=== PATIENT | female | born 1935 | race Caucasian/White ===

== ENCOUNTER 2016-12-11 19:37 | Inpatient (IN) | payer MEDICARE, BC ==
[~2016-12-11] VITALS: Ht 172.7 cm; Wt 90.5 kg
[~2016-12-11 19:37] MED LIST: ASPI81TA2 PO; ATOR20TA58 PO; BUPR100T6 PO; CHOL10007 PO; CLOP75TA27 PO; IBUP200C; INSU100C SQ; INSU100V8 SQ; LISI-334 PO; LISI40TA PO; METO-313 PO; METO25TA4 PO; NITR0.3T SL; PHEN50TA3 PO; RANO500T2 PO; VITA1TAB19 PO
--- NOTE | 2016-12-11 20:02 | ED.ADGEN ---
Past History Past Medical History: CAD, Diabetes, High Cholesterol, Hypertension, Seizure, Other Past Surgical History: , Hysterectomy, Tonsillectomy, Other Smoking: Non-smoker Alcohol Use: None Drug Use: None Adult General Chief Complaint Chief Complaint ".. I ve been sick..." [facility] HPI Patient is a 81 year old female who presents with complaints of nausea and vomiting since 1430 today. Patient unable to keep any food or fluid down. Has had approximately 15-20 vomiting episodes since this afternoon. Patient did call [facility] and a prescription was called in for Zofran however the pharmacy is closed. Patient told to go the emergency primary for further evaluation. Patient denies any noncompliance with meds. She denies any intake of bad food. Patient denies any travel or specific ill contacts. Patient does have some significant medical history -diabetes, hypertension, coronary artery disease, seizure disorder and arthritis. Review of Systems Review of Systems Constitutional: Denies fever or chills [] Eyes: Denies change in visual acuity, redness, or eye pain [] HENT: Denies nasal congestion or sore throat [] Respiratory: Denies cough or shortness of breath [] Cardiovascular: No additional information not addressed in HPI [] GI: Complaints of generalized abdominal pain, nausea, vomiting, and diarrhea : Denies dysuria or hematuria [] Musculoskeletal: Denies back pain or joint pain [] Integument: Denies rash or skin lesions [] Neurologic: Denies headache, focal weakness or sensory changes [] Endocrine: Denies polyuria or polydipsia [] Family History Family History Noncontributory Current Medications Current Medications Current Medications Medications (Trade) Dose Ordered Sig/[place] Start Time Stop Time Status Last Admin Dose Admin Ondansetron HCl (Zofran) 8 mg 1X ONCE 12/11/16 20:15 12/11/16 20:16 DC 12/11/16 20:41 8 MG Allergies Allergies Allergies Coded Allergies Type Severity Reaction Last Updated Verified Sulfa (Sulfonamide Antibiotics) Allergy Severe Hives 12/29/13 Yes celecoxib Allergy Severe Hives 12/29/13 Yes codeine Allergy Severe Hives 12/29/13 Yes Physical Exam Physical Exam Constitutional: in acute distress, non-toxic appearance. [] HENT: Normocephalic, atraumatic, bilateral external ears normal, oropharynx moist, no oral exudates, nose normal. [] Eyes: PERRLA, EOMI, conjunctiva normal, no discharge. [] Neck: Normal range of motion, no tenderness, supple, no stridor. [] Cardiovascular. Tachycardia:Heart rate regular rhythm, no murmur, PMI to the left Lungs & Thorax: Bilateral breath sounds equal at apexes with a few scattered wheezes on Auscultation [] Abdomen: Bowel sounds are hyperactive, soft, generalized tenderness, no masses, no pulsatile masses. Old surgery scars. Obese. Declines rectal exam this time. Skin: Warm, dry, no erythema, no rash. Poor turgor Back: No tenderness, no CVA tenderness. [] Extremities: No tenderness, no cyanosis, no clubbing, ROM intact, no edema. Arthritic changes.] Neurologic: Alert and oriented X 3, no gross motor function deficits, decreased distal plantar sensory,, no focal deficits noted. [] Psychologic: Affect anxious, judgement normal, mood normal. [] Current Patient Data Vital Signs Vital Signs Date Time Temp Pulse Resp B/P Pulse Ox O2 Delivery O2 Flow Rate FiO2 12/11/16 21:36 88 16 132/79 95 12/11/16 20:00 98.0 Room Air Lab Results Laboratory Tests Test 12/11/16 21:20 12/11/16 22:20 White Blood Count 9.6x10^3/uL (4.0-11.0) Red Blood Count 4.41x10^6/uL (3.50-5.40) Hemoglobin 14.0g/dL (12.0-15.5) Hematocrit 41.4% (36.0-47.0) Mean Corpuscular Volume 94fL (79-100) Mean Corpuscular Hemoglobin 32pg (25-35) Mean Corpuscular Hemoglobin Concent 34g/dL (31-37) Red Cell Distribution Width 13.5% (11.5-14.5) Platelet Count 230x10^3/uL (140-400) Neutrophils (%) (Auto) 80% (31-73) H Lymphocytes (%) (Auto) 13% (24-48) L Monocytes (%) (Auto) 6% (0-9) Eosinophils (%) (Auto) 0% (0-3) Basophils (%) (Auto) 0% (0-3) Neutrophils # (Auto) 7.7x10^3uL (1.8-7.7) Lymphocytes # (Auto) 1.2x10^3/uL (1.0-4.8) Monocytes # (Auto) 0.6x10^3/uL (0.0-1.1) Eosinophils # (Auto) 0.0x10^3/uL (0.0-0.7) Basophils # (Auto) 0.0x10^3/uL (0.0-0.2) Prothrombin Time 11.5SEC (9.4-11.4) H Prothrombin Time INR 1.1 (0.9-1.1) PTT 25SEC (23-33) Sodium Level 139mmol/L (136-145) Potassium Level 3.3mmol/L (3.5-5.1) L Chloride Level 104mmol/L (98-107) Carbon Dioxide Level 28mmol/L (21-32) Anion Gap 7 (6-14) Blood Urea Nitrogen 24mg/dL (7-20) H Creatinine 0.7mg/dL (0.6-1.0) Estimated GFR (Cockcroft-Gault) 80.1 Glucose Level 164mg/dL (70-99) H Calcium Level 8.3mg/dL (8.5-10.1) L Magnesium Level 1.7mg/dL (1.8-2.4) L Total Bilirubin 0.8mg/dL (0.2-1.0) Direct Bilirubin 0.4mg/dL (0.0-0.2) H Aspartate Amino Transferase (AST) 62U/L (15-37) H Alanine Aminotransferase (ALT) 122U/L (14-59) H Alkaline Phosphatase 104U/L (46-116) Creatine Kinase 41U/L (26-192) Creatine Kinase MB (Mass) 0.8ng/mL (0.0-3.6) Creatine Kinase MB Relative Index 2.0% (0-4) Troponin I Quantitative < 0.017ng/mL (0-0.055) II-Ppx-L-Type Natriuretic Peptide 361pg/mL (0-449) Total Protein 6.9g/dL (6.4-8.2) Albumin 3.2g/dL (3.4-5.0) L Lipase 135U/L (73-393) Urine Collection Type Unknown Urine Color Evelina Urine Clarity Clear Urine pH 6.5 Urine Specific [place] 1.020 Urine Protein 100 mg/dl (NEG-TRACE) Urine Glucose (UA) Negmg/dL (NEG) Urine Ketones (Stick) 80mg/dL (NEG) Urine Blood Neg (NEG) Urine Nitrite Neg (NEG) Urine Bilirubin Small (NEG) Urine Urobilinogen Dipstick 2mg/dL (0.2 mg/dL) Urine Leukocyte Esterase Neg (NEG) Urine RBC 3-5/HPF (0-2) Urine WBC 6-10/HPF (0-4) Urine Squamous Epithelial Cells Occ/LPF Urine Bacteria 0/HPF (0-FEW) Urine Mucus Slight/LPF Urine Opiates Screen Neg (NEG) Urine Methadone Screen Neg (NEG) Urine Barbiturates Neg (NEG) Urine Phencyclidine Screen Neg (NEG) Urine Amphetamine/Methamphetamine Neg (NEG) Urine Benzodiazepines Screen Neg (NEG) Urine Cocaine Screen Neg (NEG) Urine Cannabinoids Screen Neg (NEG) Urine Ethyl Alcohol Neg (NEG) EKG EKG My interpretation of EKG shows a sinus rhythm at 92 bpm. There is left axis. Some nonspecific ST and lateral findings. But no findings acute STEMI with contralateral changes. Some bundle-branch changes [] Radiology/Procedures Radiology/Procedures My interpretation of abdomen film shows nonspecific bowel gas pattern. No free air in the diaphragm. Old surgical clips. My interpretation of chest x-ray shows cardiomegaly. Degenerative joint changes of spine. Kyphosis and scoliosis Course & Med Decision Making Course & Med Decision Making Pertinent Labs and Imaging studies reviewed. (See chart for details). Does presentation, testing and treatment plan with . Will admit for further hydration and evaluation and treatment. [] Final Impression Final Impression 1. Nausea and Vomiting[] 2. Dehydration 3. Hypokalemia 4. Hypomagnesium 5. Elevated AST and ALT 6. Malnutrition - Alb. 3.2 Problems: Dragon Disclaimer Dragon Disclaimer This electronic medical record was generated, in whole or in part, using a voice recognition dictation system. TRISTON FALCON MD Dec 11, 2016 20:02
[2016-12-11] MEDS ORDERED: ONDANSETRON PF 4 MG/2 ML VIAL. IV ONE (20:15)
--- NOTE | 2016-12-11 20:53 | EKG ---
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
[2016-12-11 21:48] LABS: BASO % 0 % (0-3); EOS % 0 % (0-3); HEMATOCRIT 41.4 % (36.0-47.0); LYMPH # 1.2 x10^3/uL (1.0-4.8); LYMPH % 13 % (24-48); MEAN CORPUSCULAR HEMOGLOBIN 32 pg (25-35); MEAN CORPUSCULAR HGB CONC 34 g/dL (31-37); MEAN CORPUSCULAR VOLUME 94 fL (79-100); MONO # 0.6 x10^3/uL (0.0-1.1); MONO % 6 % (0-9); NEUT # 7.7 x10^3uL (1.8-7.7); NEUT % 80 % (31-73); PLATELET COUNT 230 x10^3/uL (140-400); RED BLOOD COUNT 4.41 x10^6/uL (3.50-5.40); RED CELL DISTRIBUTION WIDTH 13.5 % (11.5-14.5); WHITE BLOOD COUNT 9.6 x10^3/uL (4.0-11.0)
[2016-12-11 22:19] LABS: ALBUMIN 3.2 g/dL (3.4-5.0); CALCIUM 8.3 mg/dL (8.5-10.1); CREATININE 0.7 mg/dL (0.6-1.0); DIRECT BILIRUBIN 0.4 mg/dL (0.0-0.2); GFR 80.1; MAGNESIUM 1.7 mg/dL (1.8-2.4); POTASSIUM 3.3 mmol/L (3.5-5.1); TOTAL BILIRUBIN 0.8 mg/dL (0.2-1.0); TOTAL PROTEIN 6.9 g/dL (6.4-8.2)
[2016-12-11 22:53] LABS: AMPHETAMINE/METHAMPHETAMINE NEG (NEG); BARBITURATES NEG (NEG); BENZODIAZEPINES NEG (NEG); CANNABINOIDS NEG (NEG); COCAINE NEG (NEG); METHADONE NEG (NEG); OPIATES NEG (NEG); PHENCYCLIDINE NEG (NEG)
[2016-12-11] MEDS ORDERED: POTASSIUM CHLORIDE 20 MEQ/15 ML ORAL LIQUID. PO ONE (23:00)
[2016-12-11 23:21] LABS: BILIRUBIN,URINE SMALL (NEG); CLARITY,URINE CLEAR; COLOR,URINE AMBER; GLUCOSE,URINE NEG (NEG)
[2016-12-11 23:22] LABS: UROBILINOGEN,URINE 2 mg/dL (0.2 mg/dL)
[2016-12-11 23:23] LABS: BACTERIA,URINE 0 /HPF (0-FEW); NITRITE,URINE NEG (NEG)
[2016-12-11 23:24] LABS: SQUAMOUS EPITHELIAL CELL,UR OCC /LPF
[2016-12-11] MEDS ORDERED: LORAZEPAM 2 MG/ML VIAL IV ONE (23:30)
[2016-12-11] MEDS ORDERED: MAGNESIUM SULFATE 2GM 50 ML IV ONE (23:30)
[2016-12-12] MEDS: ONDANSETRON PF 4 MG/2 ML VIAL. IV PRN ×2 (00:27→20:28)
[2016-12-12 01:40] VITALS: BP 145/62
[2016-12-12] MEDS: IV NORMAL SALINE 1,000ML 1,000 ML IV SCH ×3 (02:20→20:28)
[2016-12-12] MEDS ORDERED: IBUP800T PO (04:20)
[2016-12-12 04:47] LABS: BASO % 0 % (0-3); EOS % 0 % (0-3); HEMATOCRIT 40.3 % (36.0-47.0); HEMOGLOBIN 13.5 g/dL (12.0-15.5); LYMPH # 2.4 x10^3/uL (1.0-4.8); LYMPH % 24 % (24-48); MEAN CORPUSCULAR HEMOGLOBIN 32 pg (25-35); MEAN CORPUSCULAR HGB CONC 34 g/dL (31-37); MEAN CORPUSCULAR VOLUME 95 fL (79-100); MONO # 1.1 x10^3/uL (0.0-1.1); MONO % 11 % (0-9); NEUT # 6.3 x10^3uL (1.8-7.7); NEUT % 64 % (31-73); PLATELET COUNT 229 x10^3/uL (140-400); RED BLOOD COUNT 4.24 x10^6/uL (3.50-5.40); RED CELL DISTRIBUTION WIDTH 13.7 % (11.5-14.5); WHITE BLOOD COUNT 9.9 x10^3/uL (4.0-11.0)
[2016-12-12 05:26] LABS: PHENY 1.6 mcg/mL (10.0-20.0)
[2016-12-12] MEDS ORDERED: PHEN100C4 PO (05:56)
[2016-12-12] MEDS ORDERED: INSU100C SQ (05:58)
[2016-12-12] MEDS ORDERED: BUSP5TAB PO (06:00)
[2016-12-12] MEDS ORDERED: HYDR-2666 PO (06:02)
[2016-12-12] MEDS ORDERED: IBUPROFEN 800 MG TABLET. PO PRN (06:15)
[2016-12-12] MEDS ORDERED: NITROGLYCERIN 0.3 MG SL PRN (06:15)
[2016-12-12] MEDS ORDERED: HYDROCODONE/APAP 5/325MG TABLET. PO PRN (06:15)
[2016-12-12 06:16] VITALS: BP 133/51
[2016-12-12] MEDS ORDERED: DEXTROSE 50% 25 GM / 50ML DISP.SYRIN. IV PRN (06:30)
[2016-12-12 06:37] LABS: CALCIUM 8.2 mg/dL (8.5-10.1); CREATININE 0.7 mg/dL (0.6-1.0); GFR 80.1; POTASSIUM 4.2 mmol/L (3.5-5.1); TOTAL BILIRUBIN 0.5 mg/dL (0.2-1.0); TOTAL PROTEIN 6.1 g/dL (6.4-8.2)
[2016-12-12] MEDS: INSULIN ASPART 300 UNITS/3 ML INSULN.PEN SQ SCH ×3 (07:30→16:38)
[2016-12-12] MEDS: ASPIRIN 81 MG TAB.CHEW PO SCH (08:07)
[2016-12-12] MEDS: LISINOPRIL 20 MG TABLET PO SCH ×2 (08:07→20:29)
[2016-12-12] MEDS: CHOLECALCIFEROL (VITAMIN D3) 1,000 UNIT TABLET PO SCH (08:07)
[2016-12-12] MEDS: METOPROLOL TART IMMED RELEASE 25 MG TABLET PO SCH ×2 (08:07→20:30)
[2016-12-12] MEDS: RANOLAZINE 500 MG TAB.ER.12H PO SCH ×2 (08:07→20:29)
[2016-12-12] MEDS: VITAMIN B COMPLEX CAPSULE. PO SCH (08:07)
--- NOTE | 2016-12-12 08:43 | RAD ---
Indication: Abdominal pain with nausea. Technique: Upright and supine abdomen are submitted for review. No comparison is available. Findings: There is no free air. There are no dilated bowel loops. There are a few air-fluid levels noted on the right, appear to be mostly in colon. Impression: No evidence of small bowel obstruction. Air-fluid levels in the colon compatible with diarrhea.
--- NOTE | 2016-12-12 08:45 | RAD ---
Indication: Epigastric chest pain. Nausea. Technique: Two-view chest radiograph was obtained. Comparison is from December 02, 2014. Findings: The lungs are clear. The heart is upper limits of normal in size. There is no heart failure. There is atheromatous disease in the thoracic aorta. There is no pleural effusion. There are minimal degenerative changes in the spine. Impression: Borderline cardiomegaly.
--- NOTE | 2016-12-12 10:34 | ACF ---
Admission Criteria Forms VOMITING Clinical Indications for Admission to Inpatient Care ( Place 'X' for any and all applicable criteria): Admission is indicated for ANY ONE of the following(1)(2)(3): [X]I. Inpatient admission required rather than observation care because of ANY ONE of the following: [ ]i) Hemodynamic instability that is severe or persistent [ ]ii) Vomiting that is severe or persistent [ ]iii) Severe electrolyte abnormalities requiring inpatient care [ ]iv) Severe pain requiring acute inpatient management [ ]v) High fever or infection requiring inpatient admission as indicated by ANY ONE of the following(7)(8): [ ]1) Appropriate outpatient or observation care antimicrobial treatment unavailable, not effective, or not feasible [ ]2) Documented bacteremia [ ]3) Temp >104.9 degrees F (40.5 degrees C) (oral) [ ]4) Temp >103.1 degrees F (39.5 C) (oral) or <96.8 degrees F (36 C) (rectal) that does not respond to all emergency treatment measures [ ]vi) Acute renal failure [ ]vii) IV fluid to replace significant ongoing losses (greater than 3 L/m2 per day) [ ]viii) Parenteral nutrition regimen that must be implemented on inpatient basis [X]ix) Other condition, treatment or monitoring requiring inpatient admission [ ]II. Complete or partial gastrointestinal obstruction [ ]III. Other cause of vomiting requiring hospitalization (eg, poisoning, increased intracranial pressure) [ ]IV. Vomiting due to significant metabolic derangement (eg, severe hypercalcemia, diabetic ketoacidosis) Extended stay beyond goal length of stay may be needed for(1)(4): [ ]a) Severe vomiting [ ]b) Persistent vomiting, vital sign changes, severe electrolyte imbalance , or diagnosed cause of vomiting that requires continued hospitalization (eg, gastrointestinal obstruction , increased intracranial pressure) [ ]c) Surgery to treat identified causes of vomiting (eg, bowel obstruction , intracranial process) [ ]d) Comorbid illness that requires inpatient care (eg, acute heart failure , renal failure) [ ]e) Need for inpatient endoscopy The original [employer] [employer] content created by [employer] has been revised. The portions of the content which have been revised are identified through the use of italic text or in bold, and [facility] [employer] has neither reviewed nor approved the modified material. All other unmodified content is copyright [facility]. Please see references footnoted in the original [facility] edition 2016 Admission Criteria Met?: Yes GWYN FOWLER Dec 12, 2016 10:34
[2016-12-12 10:46] VITALS: BP 124/56
--- NOTE | 2016-12-12 14:23 | HP ---
ADMIT DATE: 12/12/2016 HISTORY OF PRESENT ILLNESS: This is an 81-year-old female patient who came to the Emergency Room yesterday with a complaint of recurrent bouts of nausea and vomiting. The patient was unable to keep any food or fluid down. She had approximately 15-20 vomiting episodes since yesterday afternoon. On further evaluation, the patient denied any noncompliance with medications. She denies any ill contacts or recent travel. None of her family has similar symptoms. She was evaluated in the Emergency Room, was found to be hypokalemic, dehydrated and was admitted for further evaluation and treatment. PAST MEDICAL HISTORY: Significant for coronary artery disease with stenting, hypertension, hyperlipidemia. 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 She is also known to have mitral regurgitation, depression and asthma. PAST SURGICAL HISTORY: Significant for cardiac catheterization and stenting, bilateral cataract extraction, , total abdominal hysterectomy and bilateral salpingo-oophorectomy, appendectomy and tonsillectomy. ALLERGIES: SHE IS ALLERGIC TO SULFA, CELEBREX AND CODEINE. MEDICATIONS: She is currently on the following medications: She is on aspirin 81 mg once a day, atorvastatin 40 mg at bedtime, buspirone 5 mg at bedtime, cholecalciferol for vitamin D3, 2000 international units once a day, hydrocodone/APAP 5/325 one tablet every 6 hours, ibuprofen 800 mg 3 times a day. She is on Lantus 40 units at bedtime, Humalog insulin 70 units before breakfast and lunch and Humalog 10 units before supper. She is on lisinopril 20 mg p.o. b.i.d., metoprolol tartrate 12.5 mg b.i.d., nitroglycerin 0.3 mg as needed sublingually every 5 minutes x 3. She is on phenytoin 100 mg p.o. daily at bedtime, Ranexa 500 mg p.o. b.i.d., and vitamin B complex 1 tablet once a day. FAMILY HISTORY: She has 4 brothers, 3 of them as babies. Her other brother in a work accident. She had 2 sisters, 1 of a stroke, 1 of COPD. Her father in his 70s because of CVA and mother is in her 80s because of CVA. SOCIAL HISTORY: She is , has 2 sons and 2 daughters. 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 REVIEW OF SYSTEMS: The patient denied any blurring of vision, she has had bilateral cataract extractions, but denied any glaucoma or macular degeneration. She denied any headache, tinnitus or sensorineural deafness. She denied any nosebleeds, stuffy nose or postnasal drip. She denied any sore throat, sore tongue, toothache, hoarseness of voice or difficulty swallowing. She did have recurrent bouts of nausea, vomiting, but no diarrhea. She denied any hematemesis, melena or hematochezia. She denied any dysuria, frequency or hematuria. She denied any chest pain, shortness of breath, orthopnea or paroxysmal nocturnal dyspnea. She denied any cough, phlegm or hemoptysis. She denied any chills, rigors or fever. PHYSICAL EXAMINATION: GENERAL: On examining her on arrival in the Emergency Room, she looked well, slightly pale; no jaundice, cyanosis or thyromegaly. No jugular venous distention. No limb edema. VITAL SIGNS: Her heart rate was 88, blood pressure 132/79, temperature was 98, respiratory rate was 16, and oxygen saturation was 96% on room air. HEENT: Showed normocephalic, atraumatic. NECK: Supple. HEART: Showed normal first and second heart sounds with no gallop, rub or murmur. CHEST: Clear to auscultation. No crepitation or rhonchi. ABDOMEN: Distended, soft, nontender. No guarding or rigidity. No organomegaly. ____ orifices intact. Bowel sounds normal. NEUROLOGIC: She was awake, alert, responding appropriately. Cranial nerves are intact. EXTREMITIES: She moves extremities without difficulty. She ambulates without assistance or assistive devices. LABORATORY DATA: On arrival to the Emergency Room showed a white cell count of 9600, hemoglobin 14, hematocrit 41, MCV 94 and platelet count 230,000 with a manual differential showing 80% polymorphs, 15% lymphocytes and 6% monocytes. Her chemistry showed that her serum sodium was 139, potassium 3.3, chloride 104, bicarbonate 28, anion gap of 7, BUN 24, creatinine 0.7. Estimated GFR was 80 mL per minute. Her glucose 164, calcium was 8.3, magnesium was 1.7. Total bilirubin is normal. AST, ALT elevated. Alkaline phosphatase is normal. Her first set of cardiac enzymes showed troponin to be less than 0.017. Beta natriuretic peptide was 361. Total protein was 6.9, albumin 3.2. Lipase was 135. Her prothrombin time was 11.5, INR 1.1, aPTT was 25. Urinalysis was essentially unremarkable. Urine toxic screen was also negative. Phenytoin level was very low at 1.6. ASSESSMENT AND PLAN: The patient was admitted, started on IV fluid and was continued on her medication. We will start with a clear liquid diet if tolerated and advance diet as tolerated. Her liver enzymes were normal in 2014 and given her recurrent bouts of nausea, vomiting and epigastric discomfort, I would probably arrange for her to have an abdominal ultrasound to rule out the possibility of acute cholecystitis. SWETHA NAGY MD DR: JAN/juliana JOB#: [id number] / [id number]
[2016-12-12 14:39] VITALS: BP 151/63
[2016-12-12 17:54] VITALS: BP 136/56
[2016-12-12] MEDS: PHENYTOIN SODIUM EXTENDED 100 MG CAPSULE PO SCH (20:29)
[2016-12-12] MEDS: ATORVASTATIN CALCIUM 20 MG TABLET PO SCH (20:29)
[2016-12-12] MEDS: busPIRone 5 MG TABLET. PO SCH (20:30)
[2016-12-12] MEDS: INSULIN DETEMIR 300 UNITS/3 ML INSULN.PEN. SQ SCH (20:31)
[2016-12-12 23:43] VITALS: BP 161/76
--- NOTE | 2016-12-12 23:47 | PN ---
DATE: 12/12/2016 SUBJECTIVE: The patient is sitting on the edge of the bed, drinking her liquid diet. She has had no further episodes of nausea, vomiting. She continued to have aches and pains, mostly epigastric in her joints and back. Her liver enzymes continued to be high, both of them were normal about 2 years ago. Her troponin was slightly also elevated. PHYSICAL EXAMINATION: GENERAL: When I examined her this afternoon, she looked well and was clearly in no apparent respiratory distress. No pallor, jaundice, cyanosis, or thyromegaly. No jugular venous distension. No limb edema. VITAL SIGNS: Her heart rate was 68, blood pressure was 124/56, temperature was 98.1, respiratory rate was 16, and oxygen saturation was 97% on room air. HEAD, EYES, EARS, NOSE AND THROAT: Showed normocephalic, atraumatic. NECK: Supple. HEART: Showed normal first and second heart sounds with no gallop, rub or murmur. CHEST: Clear to auscultation. No crepitation or rhonchi. ABDOMEN: Distended, soft, nontender. No guarding or rigidity. No organomegaly. Hernial orifices intact. Bowel sounds normal. NEUROLOGIC: She is awake, alert, responding appropriately. Cranial nerves intact. She moves extremities without difficulty. She ambulates without assistance or assistive devices. LABORATORY DATA: Her lab work this morning showed a white cell count 9900, hemoglobin 13.5, hematocrit 40, MCV 95 and platelet count 229,000. Her chemistry showed that her serum sodium was 139, potassium up to 4.2, chloride 105, bicarbonate 25, anion gap of 9, BUN 24, creatinine was 0.7, estimated GFR was 18 mL per minute. Her glucose was 154, calcium was 8.2. Total bilirubin normal; however, AST, ALT slightly elevated. Alkaline phosphatase was normal. Her total protein was 6.1, albumin 3. TSH was 0.756. Her second set of cardiac enzymes show troponin to be 0.027. ASSESSMENT: Recurrent bouts of nausea, vomiting, dehydration, hypokalemia, and hypomagnesemia. PLAN: Continue with IV fluid, continue with advance diet to full liquid diet. Given her symptoms and abnormal liver enzymes that were normal about 2 years ago, I will keep her n.p.o. from midnight. We will hold her insulin tonight arrange for her to have an abdominal ultrasound to make sure she does not have any acute cholecystitis. SWETHA NAGY MD DR: JAN/juliana JOB#: [id number] / [id number]
[2016-12-13 05:38] VITALS: BP 140/64
[2016-12-13 06:46] LABS: HEMATOCRIT 37.9 % (36.0-47.0); HEMOGLOBIN 12.7 g/dL (12.0-15.5); RED BLOOD COUNT 3.99 x10^6/uL (3.50-5.40); RED CELL DISTRIBUTION WIDTH 13.8 % (11.5-14.5); WHITE BLOOD COUNT 7.7 x10^3/uL (4.0-11.0)
[2016-12-13 07:02] LABS: ALBUMIN 2.7 g/dL (3.4-5.0); ALBUMIN/GLOBULIN RATIO 0.8 (1.0-1.7); CALCIUM 7.9 mg/dL (8.5-10.1); CREATININE 0.7 mg/dL (0.6-1.0); GFR 80.1; POTASSIUM 4.1 mmol/L (3.5-5.1); TOTAL BILIRUBIN 0.4 mg/dL (0.2-1.0); TOTAL PROTEIN 5.9 g/dL (6.4-8.2)
[2016-12-13] MEDS: INSULIN ASPART 300 UNITS/3 ML INSULN.PEN SQ SCH ×3 (07:30→16:55)
[2016-12-13] MEDS: IV NORMAL SALINE 1,000ML 1,000 ML IV SCH (08:00)
[2016-12-13] MEDS: METOPROLOL TART IMMED RELEASE 25 MG TABLET PO SCH ×2 (09:15→20:53)
[2016-12-13] MEDS: RANOLAZINE 500 MG TAB.ER.12H PO SCH ×2 (09:15→20:52)
[2016-12-13] MEDS: ASPIRIN 81 MG TAB.CHEW PO SCH (09:15)
[2016-12-13] MEDS: VITAMIN B COMPLEX CAPSULE. PO SCH (09:15)
[2016-12-13] MEDS: LISINOPRIL 20 MG TABLET PO SCH ×2 (09:16→20:53)
[2016-12-13] MEDS: CHOLECALCIFEROL (VITAMIN D3) 1,000 UNIT TABLET PO SCH (09:16)
--- NOTE | 2016-12-13 09:21 | RAD ---
Indication:Nausea and vomiting. Grayscale images of the abdomen were obtained. Comparison none Liver:A focal mass lesion is not seen and the visualized liver Gallbladder:Normal. The common bile duct diameter of approximately 5 mm is normal Spleen:Normal Pancreas:As visualized normal Kidneys:Normal Abdominal aorta and IVC:Largely obscured. That portion of the abdominal aorta which was seen appeared unremarkable Ancillary findings:None Impression:Midline structures partially obscured. No definite abnormality seen
[2016-12-13 11:24] VITALS: BP 168/68
[2016-12-13 15:29] VITALS: BP 179/73
[2016-12-13] MEDS: PANTOPRAZOLE 40 MG TABLET. PO SCH (16:30)
[2016-12-13] MEDS ORDERED: METO50TA2 PO (18:55)
[2016-12-13 19:00] VITALS: BP 167/53
[2016-12-13] MEDS: ATORVASTATIN CALCIUM 20 MG TABLET PO SCH (20:52)
[2016-12-13] MEDS: PHENYTOIN SODIUM EXTENDED 100 MG CAPSULE PO SCH (20:52)
[2016-12-13] MEDS: busPIRone 5 MG TABLET. PO SCH (20:53)
[2016-12-13] MEDS: INSULIN DETEMIR 300 UNITS/3 ML INSULN.PEN. SQ SCH (21:06)
--- NOTE | 2016-12-13 22:42 | PN ---
DATE: 12/13/2016 PROBLEMS: 1. Acute gastroenteritis with nausea and vomiting. 2. Mid-epigastric pain. 3. Elevated liver function tests. 4. Slightly elevated troponin. 5. Hypokalemia. 6. Hypomagnesemia. 7. Dehydration. 8. Weakness. 9. Moderate protein malnutrition. 10. Mild hyperglycemia. 11. Seizure disorder. This is an 81-year-old female who was admitted with the above problems. She had an ultrasound this morning, which was normal for any type of gallbladder disease. Her lipase was also normal. She is generally feeling better, but had some problems with PT and would benefit greatly from some post hospitalization rehab or swing bed status. OBJECTIVE: VITAL SIGNS: Blood pressure 168/68, earlier was 140/64, pulse 59, respirations 18, pulse ox is 97% on room air, temperature is 97.4, height 68 inches, weight is 198.13 pounds. Intake and output are good. GENERAL: Elderly female in no acute distress. Color is somewhat pale. HEENT: Her tongue was moist. NECK: Supple. LUNGS: Clear. CARDIOVASCULAR: Regular rhythm and rate. ABDOMEN: Soft. She does have tenderness in the mid-epigastrium. Bowel sounds are active. EXTREMITIES: With just a trace of edema. LABORATORY DATA: TSH is 0.756. Potassium is normal at 4.1. Fasting glucose 150. Albumin is 2.7, may be delusional, it was 3.2 on admission. PLAN: Continue to monitor her liver function tests. She is on a statin. This may be why it is very mildly elevated and we recommended her for swing bed status. Discontinue her IV fluids at this time. ANDREEA LEBLANC DO DR: BONILLA/juliana JOB#: [id number] / [id number]
[2016-12-14 05:12] VITALS: BP 166/58
[2016-12-14] MEDS ORDERED: METO25TA4 PO (07:18)
[2016-12-14 07:28] LABS: BASO % 0 % (0-3); EOS # 0.2 x10^3/uL (0.0-0.7); EOS % 2 % (0-3); HEMOGLOBIN 12.9 g/dL (12.0-15.5); LYMPH # 2.5 x10^3/uL (1.0-4.8); LYMPH % 28 % (24-48); MEAN CORPUSCULAR HEMOGLOBIN 32 pg (25-35); MEAN CORPUSCULAR HGB CONC 34 g/dL (31-37); MEAN CORPUSCULAR VOLUME 94 fL (79-100); MONO % 11 % (0-9); NEUT % 58 % (31-73); PLATELET COUNT 205 x10^3/uL (140-400); RED BLOOD COUNT 4.05 x10^6/uL (3.50-5.40); RED CELL DISTRIBUTION WIDTH 13.8 % (11.5-14.5); WHITE BLOOD COUNT 8.7 x10^3/uL (4.0-11.0)
[2016-12-14] MEDS: INSULIN ASPART 300 UNITS/3 ML INSULN.PEN SQ SCH (07:30)
[2016-12-14 07:48] LABS: ALBUMIN 2.7 g/dL (3.4-5.0); ALBUMIN/GLOBULIN RATIO 0.8 (1.0-1.7); CREATININE 0.7 mg/dL (0.6-1.0); GFR 80.1; MAGNESIUM 1.8 mg/dL (1.8-2.4); POTASSIUM 3.8 mmol/L (3.5-5.1); TOTAL BILIRUBIN 0.4 mg/dL (0.2-1.0)
[2016-12-14] MEDS: ASPIRIN 81 MG TAB.CHEW PO SCH (08:10)
[2016-12-14] MEDS: VITAMIN B COMPLEX CAPSULE. PO SCH (08:10)
[2016-12-14] MEDS: RANOLAZINE 500 MG TAB.ER.12H PO SCH (08:11)
[2016-12-14] MEDS: CHOLECALCIFEROL (VITAMIN D3) 1,000 UNIT TABLET PO SCH (08:11)
[2016-12-14 08:12] VITALS: BP 166/58
[2016-12-14] MEDS: LISINOPRIL 20 MG TABLET PO SCH (08:12)
[2016-12-14] MEDS: PANTOPRAZOLE 40 MG TABLET. PO SCH (08:12)
[2016-12-14] MEDS ORDERED: METOPROLOL TART IMMED RELEASE 25 MG TABLET PO SCH (09:00)
--- NOTE | 2016-12-14 17:29 | DS ---
DATE OF DISCHARGE: 12/14/2016 DISCHARGE DIAGNOSES: 1. Acute gastroenteritis with nausea and vomiting -- resolved. 2. Mid epigastric pain. 3. Elevated liver function tests with negative ultrasound, suspect from statin. 4. Slightly elevated troponin. 5. Hypokalemia, resolved. 6. Hypomagnesemia, resolved. 7. Dehydration, resolved. 8. Weakness, improved. 9. Moderate protein malnutrition. 10. Mild hyperglycemia. 11. Seizure disorder. HOSPITAL COURSE: This is an 81-year-old female who was admitted by Dr. Mantilla for severe nausea and vomiting, etiology is probably viral. She was treated with IV fluids, antiemetics and her electrolytes were corrected and she slowly got back down to her normal self. 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 PHYSICAL EXAMINATION: VITAL SIGNS: On day of discharge, blood pressure was 166/58, pulse 61, respirations 18, 96% on room air. DISPOSITION: To home. Medications have been reconciled. She will also have home health. ANDREEA LEBLANC DO DR: BONILLA/juliana JOB#: [id number] / [id number]
== END 2016-12-14 10:27 | disposition home health service (06) | DRG 392 ==
LOC: ER 19:37 → 1 SOUTH 22:59
PROVIDERS: ADMIT Internal Medicine; ATTEND Internal Medicine
DX: A08.4 Viral intestinal infection, unspecified (principal); E44.0 Moderate protein-calorie malnutrition; E86.0 Dehydration; E11.65 Type 2 diabetes mellitus with hyperglycemia; Z68.30 Body mass index [BMI] 30.0-30.9, adult; E78.00 Pure hypercholesterolemia, unspecified; E78.5 Hyperlipidemia, unspecified; E83.42 Hypomagnesemia; E87.6 Hypokalemia; G40.909 Epilepsy, unspecified, not intractable, without status epilepticus; I10 Essential (primary) hypertension; I25.10 Atherosclerotic heart disease of native coronary artery without angina pectoris; E66.9 Obesity, unspecified; J45.909 Unspecified asthma, uncomplicated; F32.9 Major depressive disorder, single episode, unspecified; M19.90 Unspecified osteoarthritis, unspecified site; Z82.3 Family history of stroke; Z82.5 Family history of asthma and other chronic lower respiratory diseases; Z87.442 Personal history of urinary calculi; Z87.891 Personal history of nicotine dependence; Z90.710 Acquired absence of both cervix and uterus; Z95.5 Presence of coronary angioplasty implant and graft; Z98.41 Cataract extraction status, right eye; Z98.42 Cataract extraction status, left eye; Z88.2 Allergy status to sulfonamides; Z88.5 Allergy status to narcotic agent
CPT/HCPCS: 36415; 71020; 74020; 76700; 80048; 80053; 80076; 80185; 81001; 82553; 82947; 83690; 83735; 83880; 84443; 84484; 85027; 85610; 85730; 93005; 96374; 96375; G0481; J1815; J2060; J2405; J3475; 99285-25; J7030

== ENCOUNTER → 2017-10-18 | Outpatient (CLI) | payer MEDICARE, BC ==
[~2017-10-18] MED LIST changes: +ASPI-630 PO; -ASPI81TA2 PO; +BUSP5TAB PO; +CHOL100014 PO; -CHOL10007 PO; -CLOP75TA27 PO; +CLOP75TA57 PO; +HYDR-2758 PO; -IBUP200C; +IBUP200C6; +IBUP800T19 PO; +METO50TA6 PO; +PHEN100C4 PO
--- NOTE | 2017-10-20 11:17 | CARD ---
MR#: [id number] Date of Study: 10/18/2017 Ordering Physician: SYLVIA IRELAND, Referring Physician: SYLVIA IRELAND, Tech: Ramírez Corona [facility] APPROVED REPORT EXAM: Two-dimensional and M-mode echocardiogram with Doppler and color Doppler. Other Information Quality : AverageHR: 63bpm INDICATION Mitral Valve Disease 2D DIMENSIONS RVDd2.9 (2.9-3.5cm)Left Atrium(2D)4.0 (1.6-4.0cm) IVSd1.6 (0.7-1.1cm)Aortic Root(2D)3.1 (2.0-3.7cm) LVDd4.5 (3.9-5.9cm)LVOT Diameter1.8 (1.8-2.4cm) PWd1.3 (0.7-1.1cm)LVDs3.4 (2.5-4.0cm) FS (%) 24.8 %SV46.0 ml LVEF(%)49.3 (>50%) Aortic Valve AoV Peak Raymundo.153.9cm/sAoV VTI35.0cm AO Peak GR.9.5mmHgLVOT Peak Raymundo.101.7cm/s AO Mean GR.5mmHgAVA (VMAX)1.60cm2 Mitral Valve MV E Dewcnvaq34.1cm/sMV DECEL [id number] MV A Ulqgmabk720.8cm/sE/A Ratio0.8 Pulmonary Valve PV Peak Thvvnqgv416.2cm/sPV Peak Grad.7mmHg Pulmonary Vein S1 Dmewpblz02.7cm/sD2 Gmgdhisl16.9cm/s LEFT VENTRICLE The left ventricle is normal size. There is mild to moderate concentric left ventricular hypertrophy. Left ventricle systolic function is grossly normal. The Ejection Fraction is 50-55%. There is normal LV segmental wall motion. Transmitral Doppler flow pattern is Grade I-abnormal relaxation pattern. RIGHT VENTRICLE The right ventricle is normal size. The right ventricular systolic function is normal. ATRIA The left atrium is borderline dilated. The right atrium size is normal. The interatrial septum is int act with no evidence for an atrial septal defect or patent foramen ovale as noted on 2-D or Doppler i maging. There is mild calcification. AORTIC VALVE The aortic valve is thickened but opens well. Doppler and Color Flow revealed trace aortic regurgitat ion. There is no significant aortic valvular stenosis. There is no aortic valvular vegetation. MITRAL VALVE The mitral valve is thickened but opens well. Mitral annular calcification is moderate. There is no e vidence of mitral valve prolapse. There is no mitral valve stenosis. Doppler and Color-flow revealed trace to mild mitral regurgitation. TRICUSPID VALVE The tricuspid valve is normal in structure and function. Doppler and Color Flow revealed no tricuspid valve regurgitation noted. There is no tricuspid valve prolapse or vegetation. There is no tricuspid valve stenosis. PULMONIC VALVE Pulmonic valve structure was unable to be visualized. Doppler and Color Flow revealed no pulmonic mojgan vular regurgitation. There is no pulmonic valvular stenosis. GREAT VESSELS The aortic root is normal in size. The IVC is normal in size and collapses >50% with inspiration. PERICARDIAL EFFUSION There is no pleural effusion. There is no evidence of significant pericardial effusion. Critical Notification Critical Value: No <Conclusion> Left ventricle systolic function is grossly normal. The Ejection Fraction is 50-55%. There is normal LV segmental wall motion. No significant valvular disease. Signed by : Sylvia Ireland, Electronically Approved : 10/20/2017 11:17:12
== END | disposition home or self-care (01) ==
LOC: ECHO 12:52
PROVIDERS: ATTEND Internal Medicine Cardiovascular Disease
DX: I34.0 Nonrheumatic mitral (valve) insufficiency (principal); Z87.891 Personal history of nicotine dependence
CPT/HCPCS: 93306

== ENCOUNTER → 2017-10-20 | Outpatient (CLI) | payer MEDICARE, BC ==
--- NOTE | 2017-10-20 13:24 | RAD ---
CT HEAD WITHOUT CONTRAST10/20/2017 3:00 PM Indication: Dizziness Comparison: CT head without contrast November 10, 2012 Procedure: Multidetector CT imaging of the head was performed without the administration of contrast. Findings: No evidence of acute intracranial hemorrhage is identified. No evidence of subacute territorial infarct is seen. Senescent atrophic changes are similar to prior study. No acute mass effect or midline shift is identified. The ventricles and basilar cisterns have a similar configuration. Cavum septum pellucidum noted. There is extensive periventricular and deep white matter hypoattenuation the appearance has progressed in the interim since prior study. Small foci of hypoattenuation in the bilateral basal ganglia may reflect remote lacunar infarcts. Some of these appear to have developed in the interim since 2012. No acute osseous changes are identified. Impression: 1. No CT evidence of acute intracranial abnormality 2. Interval progression of periventricular and deep white changes of microangiopathy. Interval development of small hypodensities in the bilateral basal ganglia suggests interval but likely chronic lacunar infarcts. No CT evidence of acute ischemia is identified. No MRI offers more sensitive evaluation for ischemia if clinically indicated. PQRS Compliance Statement: One or more of the following individualized dose reduction techniques were utilized for this examination: 1. Automated exposure control 2. Adjustment of the mA and/or kV according to patient size 3. Use of iterative reconstruction technique
--- NOTE | 2017-10-20 15:23 | RAD ---
Carotid ultrasound, 10/20/2017: History: Dizziness and giddiness Duplex evaluation of the carotid arteries in the neck was performed including grayscale, color-flow and spectral Doppler analysis. There is mild intimal thickening in the common carotid arteries with mild to moderate atherosclerotic plaquing at the carotid bifurcations. The plaques are partially calcified. The peak systolic velocity in the right internal carotid artery is 69 cm/s with an end-diastolic velocity of 19 cm/s. The peak systolic velocity in the left internal carotid artery is 86 cm/s with an end-diastolic velocity of 12 cm/s. These Doppler findings do not suggest a hemodynamically significant stenosis. Antegrade flow is present in both vertebral arteries in the neck. IMPRESSION: Mild to moderate atherosclerotic plaquing at both carotid bifurcations with underlying luminal narrowing in the 0-50% diameter range bilaterally. Note: Stenosis calculations for CTA, MRA and conventional angiography are based upon determination of the distal ICA diameter in accordance with the NASCET methodology. Stenosis calculations for Doppler studies are derived from validated velocity criteria which are known to correlate with NASCET methodology of determining stenosis.
== END | disposition home or self-care (01) ==
LOC: CT 12:43
PROVIDERS: ATTEND Specialist
DX: R42 Dizziness and giddiness (principal); I65.23 Occlusion and stenosis of bilateral carotid arteries; Z87.891 Personal history of nicotine dependence
CPT/HCPCS: 70450; 93880

== ENCOUNTER → 2018-01-30 | Outpatient (CLI) | payer MEDICARE, BC ==
--- NOTE | 2018-01-30 17:25 | RAD ---
Left lower extremity venous doppler ultrasound History: Left leg pain Comparison: None Findings: Multiple grayscale, color, and duplex spectral analysis sonographic images were acquired of the left lower extremity veins to evaluate for the presence of DVT. There is normal phasicity. Normal compression, color-flow, and augmentation is demonstrated from the left common femoral to the popliteal veins. There is normal color flow of the proximal greater saphenous and profunda femoris veins. There is normal color flow of segments of the calf veins. Impression: 1. There is no evidence of deep venous thrombosis from the left common femoral to popliteal veins. Electronically signed by: Ramon Bryan MD (01/30/2018 5:22 PM) [facility]
== END | disposition home or self-care (01) ==
LOC: US 16:16
PROVIDERS: ATTEND Nurse Practitioner Family
DX: M79.605 Pain in left leg (principal); I10 Essential (primary) hypertension; E11.65 Type 2 diabetes mellitus with hyperglycemia; E78.5 Hyperlipidemia, unspecified; E78.00 Pure hypercholesterolemia, unspecified; Z87.891 Personal history of nicotine dependence
CPT/HCPCS: 93971

== ENCOUNTER 2019-09-12 22:01 | Emergency (ER) | payer MEDICARE, BC ==
[~2019-09-12] VITALS: Ht 325.1 cm; Wt 90.3 kg
[~2019-09-12 22:01] MED LIST changes: +HYDR-2155 PO; -HYDR-2758 PO; +IBUP-1390; -IBUP200C6
--- NOTE | 2019-09-12 22:09 | PHYS DOC ---
Past History Past Medical History: CAD, Diabetes, High Cholesterol, Hypertension, Seizure, Other Past Surgical History: , Hysterectomy, Tonsillectomy, Other Smoking: Non-smoker Alcohol Use: None Drug Use: None Adult General Chief Complaint Chief Complaint: Head injury HPI HPI 84-year-old female presents with report of mechanical trip and fall striking the forehead on doorway when patient had gotten up to use bathroom approximately 45min prior to arrival with interval swelling to forehead. Reports headache. Denies loss of consciousness. Denies neck pain. Patient does report use of aspirin daily. Denies nausea or vomiting. Review of Systems Review of Systems Constitutional: Denies fever or chills Eyes: Denies redness or eye pain HENT: Denies nasal congestion or sore throat or epistaxis Respiratory: Denies cough or shortness of breath Cardiovascular: Denies chest pain or palpitations GI: Denies abdominal pain, nausea, or vomiting : Denies dysuria or hematuria Musculoskeletal: Denies neck pain or joint pain Integument: Denies rash or skin lesions; reports forehead contusion and bruising Neurologic: Reports headache; denies focal weakness or sensory changes Complete systems were reviewed and found to be within normal limits, except as documented in this note. Allergies Allergies Allergies Coded Allergies Type Severity Reaction Last Updated Verified Sulfa (Sulfonamide Antibiotics) Allergy Severe Hives 12/29/13 Yes celecoxib Allergy Severe Hives 12/29/13 Yes codeine Allergy Severe Hives 12/29/13 Yes Physical Exam Physical Exam Constitutional: Well developed, well nourished, no acute distress, non-toxic appearance HENT: Normocephalic, 4cm x 3cm forehead hematoma, oropharynx moist, no Chen sign, no periorbital hematoma Eyes: PERRL, EOMI, conjunctiva normal, no discharge, no nystagmus Neck: Normal range of motion, no midline tenderness, paraspinal tenderness on palpation, supple Cardiovascular: Heart rate normal, regular rhythm Lungs & Thorax: Bilateral breath sounds clear to auscultation, no wheezing Skin: Warm, dry, no erythema, no rash, forehead contusion/hematoma as above Neurologic: Alert and oriented X 3, normal motor function, normal sensory function, no focal deficits noted Psychologic: Affect normal, judgement normal EKG EKG [] Radiology/Procedures Radiology/Procedures PROCEDURE: CT HEAD AND CERVICAL SPINE WO Exam: CT head and cervical spine without contrast INDICATION: Headache, status post blunt trauma to the forehead TECHNIQUE: Sequential axial images through the head were obtained without the administration of IV contrast. Comparisons: None FINDINGS: Head: No focal parenchymal lesion or hemorrhage is identified. There is no midline shift or sulcal effacement. No acute vascular territory infarction is identified. Hernandez-white distinction is preserved. The ventricular system is within normal limits without compression hydrocephalus. The basal cisterns are well maintained. Extra cranial soft tissue contusion overlying the left frontal region. The visualized portions of the paranasal sinuses and mastoid air cells are well-pneumatized. No acute fractures. Cervical spine: Vertebral body heights are well-maintained. Straightening of the cervical spine which may be positional. Should the cervical spine is not identified. Mild spondylotic change in cervical spine with degenerative disc disease greatest at C3-C4 and C4-C5. Visualized paraspinal soft tissues are unremarkable. IMPRESSION: 1. Extra cranial soft tissue contusion overlying the left frontal region without underlying osseous or intracranial abnormality. 2. Negative CT C-spine for acute traumatic injury. Exposure: One or more of the following in the visualized dose reduction techniques were utilized for this examination: 1. Automated exposure control 2. Adjustment of the MA and/or KV according to patient size Use of iterative of reconstructive technique Electronically signed by: Jovany Pena MD (09/12/2019 10:41 PM) [facility] [id number] Course & Med Decision Making Course & Med Decision Making Pertinent Imaging studies reviewed. (See chart for details) Elderly patient presents with report of head contusion/forehead hematoma. History of aspirin use. CT head/cervical spine without acute process. Symptomat ic treatment provided. Ice applied. Tylenol offered which patient declined. Patient stable for discharge with outpatient follow-up with PCP. Discussed findings and plan with patient and family, who acknowledge understanding and agreement. Dragon Disclaimer Dragon Disclaimer This electronic medical record was generated, in whole or in part, using a voice recognition dictation system. Departure Departure: Impression: Primary Impression: Head contusion Additional Impression: Traumatic hematoma of forehead Disposition: 01 HOME, SELF-CARE Condition: STABLE Referrals: BALBIR BHATT MD (PCP) Patient Instructions: Facial or Scalp Contusion, [id number], Hematoma, Eas y-to-Read Additional Instructions: ICE area 20 min on then leave off for next 20 min. May repeat as needed for next few days. Use over the counter Tylenol for pain or discomfort. Problem Qualifiers Primary Impression: Head contusion Encounter type: initial encounter Contusion of head detail: scalp Qualified Codes: S00.03XA - Contusion of scalp, initial encounter Additional Impression: Traumatic hematoma of forehead Encounter type: initial encounter Qualified Codes: S00.83XA - Contusion of other part of head, initial encounter BRIAN WHEELER DO Sep 12, 2019 22:09
[2019-09-12 22:37] VITALS: BP 163/65
--- NOTE | 2019-09-12 22:44 | RAD ---
Exam: CT head and cervical spine without contrast INDICATION: Headache, status post blunt trauma to the forehead TECHNIQUE: Sequential axial images through the head were obtained without the administration of IV contrast. Comparisons: None FINDINGS: Head: No focal parenchymal lesion or hemorrhage is identified. There is no midline shift or sulcal effacement. No acute vascular territory infarction is identified. Hernandez-white distinction is preserved. The ventricular system is within normal limits without compression hydrocephalus. The basal cisterns are well maintained. Extra cranial soft tissue contusion overlying the left frontal region. The visualized portions of the paranasal sinuses and mastoid air cells are well-pneumatized. No acute fractures. Cervical spine: Vertebral body heights are well-maintained. Straightening of the cervical spine which may be positional. Should the cervical spine is not identified. Mild spondylotic change in cervical spine with degenerative disc disease greatest at C3-C4 and C4-C5. Visualized paraspinal soft tissues are unremarkable. IMPRESSION: 1. Extra cranial soft tissue contusion overlying the left frontal region without underlying osseous or intracranial abnormality. 2. Negative CT C-spine for acute traumatic injury. Exposure: One or more of the following in the visualized dose reduction techniques were utilized for this examination: 1. Automated exposure control 2. Adjustment of the MA and/or KV according to patient size Use of iterative of reconstructive technique Electronically signed by: Jovany Pena MD (09/12/2019 10:41 PM) [id number]
== END 2019-09-12 23:05 | disposition home or self-care (01) ==
LOC: ER 22:01
DX: S00.83XA Contusion of other part of head, initial encounter (principal); S00.03XA Contusion of scalp, initial encounter; I25.10 Atherosclerotic heart disease of native coronary artery without angina pectoris; E11.9 Type 2 diabetes mellitus without complications; E78.00 Pure hypercholesterolemia, unspecified; I10 Essential (primary) hypertension; Z88.2 Allergy status to sulfonamides; Z88.5 Allergy status to narcotic agent; Z88.8 Allergy status to other drugs, medicaments and biological substances; W01.198A Fall on same level from slipping, tripping and stumbling with subsequent striking against other object, initial encounter; Y93.89 Activity, other specified; Y92.89 Other specified places as the place of occurrence of the external cause; Y99.8 Other external cause status
CPT/HCPCS: 70450; 72125; 99284-25

== ENCOUNTER → 2019-11-07 | Outpatient (CLI) | payer MEDICARE, BC ==
--- NOTE | 2019-11-07 16:29 | RAD ---
LUMBAR SPINE 2-3V History: Back pain, right hip pain Comparison: January 10, 2016 Findings: 3 views of the lumbar spine are submitted. There is [id number] lumbar levoscoliosis. There is bone demineralization. There is multilevel lumbar facet degenerative change. There is again advanced degenerative disc disease at L2-3, L3-4, and to a lesser degree L4-5. There is diffuse atherosclerotic calcification abdominal aortic and iliac arteries. There is very mild grade 1 anterior spondylolisthesis L5-S1 likely unchanged. Impression: 1. There is multilevel lumbar degenerative disc disease greatest L2-3 through L4-5. There is lumbar levoscoliosis. Electronically signed by: Ramon Bryan MD (11/07/2019 4:26 PM) [facility]
--- NOTE | 2019-11-07 16:34 | RAD ---
AP view of the pelvis and two-view study of the right hip Clinical indications: Back and right hip pain. FINDINGS: There is mild degenerative spurring of the right femoral head without joint space narrowing of the right hip joint. The left hip joint is unremarkable. No acute fracture or dislocation or diastases or lytic process is evident. Levoscoliosis of the lumbar spine is seen. IMPRESSION: No acute fracture. Mild degenerative spurring of the right femoral head without joint space narrowing. Scoliosis. Electronically signed by: Donavan Raza MD (11/07/2019 4:31 PM) [facility]
== END | disposition home or self-care (01) ==
LOC: DXRAD 15:20
PROVIDERS: ATTEND Specialist
DX: M51.36 Other intervertebral disc degeneration, lumbar region (principal); M41.86 Other forms of scoliosis, lumbar region; M76.891 Other specified enthesopathies of right lower limb, excluding foot; I70.0 Atherosclerosis of aorta
CPT/HCPCS: 72100; 73502

== ENCOUNTER 2021-01-17 00:57 | Emergency (ER) | payer MEDICARE, BC ==
[~2021-01-17] VITALS: Ht 167.6 cm; Wt 80.0 kg
[~2021-01-17 00:57] MED LIST changes: -LISI-334 PO; +LISI20TA18 PO; -LISI40TA PO; +LISI40TA6 PO
--- NOTE | 2021-01-17 01:20 | PHYS DOC ---
Past History Past Medical History: CAD, Diabetes, GERD, High Cholesterol, Hypertension, Seizure Past Surgical History: Appendectomy, , Hysterectomy, Tonsillectomy, Other Additional Past Surgical Histo: stent Smoking: Non-smoker Alcohol Use: None Drug Use: None Adult General Chief Complaint Chief Complaint: MECHANICAL FALL HPI HPI Patient is an 85-year-old female who presents after a fall. States he was at home, about to go to bed, turned off the light and as she was turning to going to the room caught her right leg on the door and fell onto her right side. Endorses finger pain on the left hand, with a laceration and right sided chest wall pain just underneath of her axilla. Denies loss of consciousness, headache, changes in vision, neck pain, other chest pain, shortness of breath, abdominal pain, nausea, vomiting. Denies any numbness/weakness/tingling. Review of Systems Review of Systems Review of systems otherwise unremarkable except noted in HPI Allergies Allergies Allergies Coded Allergies Type Severity Reaction Last Updated Verified Sulfa (Sulfonamide Antibiotics) Allergy Severe Hives 12/29/13 Yes celecoxib Allergy Severe Hives 12/29/13 Yes codeine Allergy Severe Hives 12/29/13 Yes Physical Exam Physical Exam Constitutional: Well developed, well nourished, no acute distress, non-toxic appearance. [] HENT: Normocephalic, atraumatic, bilateral external ears normal, no hemotympanums, oropharynx moist, no oral exudates, nose normal. [] Eyes: PERRLA, EOMI, conjunctiva normal, no discharge. [] Neck: Normal range of motion, no tenderness, supple, no stridor. [] Cardiovascular: Sinus tachycardia Lungs & Thorax: Bilateral breath sounds clear to auscultation. Tenderness to palpation along the chest wall just underneath the axilla with no obvious bruising or deformities [] Abdomen: Bowel sounds normal, soft, no tenderness, no masses, no pulsatile masses. [] Skin: Warm, dry, no erythema, no rash. [] Back: No midline tenderness, no step-offs, obvious deformities, no CVA tenderness. [] Extremities: No tenderness, no cyanosis, no clubbing, ROM intact, no edema. [] Neurologic: Alert and oriented X 3, normal motor function, normal sensory function, no focal deficits noted. [] Psychologic: Affect normal, judgement normal, mood normal. [] EKG EKG [] Radiology/Procedures Radiology/Procedures []TUDY: CT head and cervical spine without contrast INDICATION: Fall. COMPARISON: 09/12/2019 TECHNIQUE: Axial CT imaging through the head and cervical spine without the use of intravenous contrast. Sagittal and coronal reformats were obtained. One or more of the following individualized dose reduction techniques were utilized for this examination: 1. Automated exposure control 2. Adjustment of the mA and/or kV according to patient size 3. Use of iterative reconstruction technique. FINDINGS: CT head: No acute intracranial hemorrhage. No localized mass effect or midline shift. No CT evidence for an acute cortical infarction. Redemonstration of generalized parenchymal volume loss with ex vacuo ventriculomegaly. White matter findings typically on account of chronic microvascular ischemic change. Scattered low attenuation within the basal ganglia was present previously. Intracranial calcific atherosclerosis. Chronic deformity of the right mandibular condyle. No depressed calvarial fracture. CT cervical spine: No acute fracture or traumatic malalignment. Multilevel spondylosis. Osteopenia. No evidence for severe central canal or neural foraminal stenosis. Carotid calcific atherosclerosis. No prevertebral hematoma. Unremarkable thyroid. No apical pneumothorax. IMPRESSION: CT head: 1. No acute intracranial abnormality by CT. 2. Chronic/senescent observations as above. CT cervical spine: 1. No acute fracture or traumatic malalignment. 2. Multilevel degenerative changes and osteopenia. No evidence for relevant central canal stenosis. Study: XR HAND_LEFT 3 VIEWS Indication: Third digit injury. Comparison: None. Findings: Bandaging material surrounds the phalanges of the long finger. No acute fracture is identified or traumatic malalignment. Mild interphalangeal joint arthrosis at a few locations. The greatest degree of arthrosis involves the thumb CMC joint which is moderate. Vascular calcifications. Osteopenia. Punctate metallic density focus projecting volar and radial to the index metacarpal neck. Impression: 1. Soft tissue injury to the long finger. No associated fracture or traumatic malalignment. 2. Punctate metallic density projecting volar/radial to the index metacarpal neck. This could be external to the patient or retained in the soft tissues near the skin surface. Correlate with direct inspection. Electronically signed by: SHELLEY OLSON MD (01/17/2021 2:32 AM) [facility] TUDY: CT chest without contrast INDICATION: Fall. COMPARISON: None. TECHNIQUE: Helical CT imaging of the chest performed without the use of intravenous contrast. Sagittal and coronal reformats were obtained. One or more of the following individualized dose reduction techniques were utilized for this examination: 1. Automated exposure control 2. Adjustment of the mA and/or kV according to patient size 3. Use of iterative reconstruction technique. FINDINGS: Vasculature: Extensive calcific atherosclerosis with coronary artery involvement. No evidence for acute aortic injury on this unenhanced CT. Dense mitral annular mineralization. Lesser extent of aortic annular mineralization. Mediastinum/quique: Small hiatal hernia. Scattered granulomas. No mediastinal or hilar adenopathy by size criteria. No retrosternal hematoma or pericardial effusion. Lungs: No pneumothorax. Scattered atelectasis and scarring. Mild interlobular septal thickening mainly at the lower lungs and a mild mosaic attenuation pattern. Scattered paraseptal cysts. Patent central airways. No pleural effusion. Neck/axilla/chest wall: Morphologically benign axillary lymph nodes. No discrete thyroid nodule. Mild nodularity of the partially imaged right breast without a well delineated mass noting that the breasts are not well evaluated by CT. Bones: A few chronic rib deformities on the left as well as anterior deformities with surrounding callus which may be subacute. No acute appearing or displaced rib fracture. Osteopenia. No compression deformity or posterior element malalignment. Intact sternum. Upper abdomen: No acute abnormality. IMPRESSION: 1. No sequela of trauma seen throughout the chest. A few left rib fractures exhibit incompletely formed callus typical of subacute fractures. 2. Several chronic observations detailed in the body the report. Electronically signed by: SHELLEY OLSON MD (01/17/2021 2:26 AM) [facility] Laceration at left middle finger just proximal to PIP, approximately 1 to 2 cm in length. Wound extensively cleaned with sterile saline. L ET placed for topi penelope anesthesia. Cleaned again with sterile saline. 4 sutures placed. Sutures were 5-0 Ethilon. Patient tolerated well. Washed again. Bandaged. Finger splint placed and aurea taped. Heart Score C/O Chest Pain: No Risk Factors: Risk Factors: DM, Current or recent (<one month) smoker, HTN, HLP, family history of CAD, obesity. Risk Scores: Risk Factors: DM, Current or recent (<one month) smoker, HTN, HLP, family history of CAD, obesity. Course & Med Decision Making Course & Med Decision Making Patient is an 85-year-old female who presents with a fall Vital signs notable for tachycardia. Physical exam noted above. Patient given Tylenol. Laceration on finger cleaned and repaired with suture. CTs of the head, C-spine, chest and hand with no acute findings. CT of the chest with some old rib fractures and various chronic conditions. Gave patient print out of chest CT. Started on Keflex in the emergency department given hand wound. Advised to continue antibiotics as prescribed. Advised to call primary care physician M morning to set up a follow-up in 5 to 7 days for wound check and suture removal. Gave strict return precautions to the ED. Family grateful, verbalized understanding and agreed with plan of discharge. [] Dragon Disclaimer Dragon Disclaimer This electronic medical record was generated, in whole or in part, using a voice recognition dictation system. Departure Departure: Impression: Primary Impression: Fall Additional Impression: Laceration Disposition: HOME / SELF CARE / HOMELESS Condition: GOOD Referrals: BALBIR BHATT MD (PCP) Patient Instructions: Fall Prevention and Home Safety, Sutured Wound Care, [id number] Additional Instructions: Please read all of the attached information carefully. Please take all of your antibiotics as prescribed. Please keep the splint on your finger and change the bandage daily as shown and discussed. You can change the bandage daily and keep clean with warm soap and water. Please call your primary care physician first thing Tuesday to set up a follow-up visit in 5 to 7 days for a wound check and suture removal. If you cannot get into your primary care you can return to the emergency department for this. Please come back to the emergency department immediately with new or concerning symptoms. Scripts Cephalexin (CEPHALEXIN) 500 Mg Capsule 1 CAP PO TID PRN for laceration, #30 CAP Prov: ABRIL MOORE MD 01/17/21 Problem Qualifiers ABRIL MOORE MD Jan 17, 2021 01:20
[2021-01-17] MEDS ORDERED: DIPH,PERTUSS(ACELL),TET VAC/PF 0.5 ML SYRINGE. VAX IM ONE (01:45)
[2021-01-17] MEDS ORDERED: CEPHALEXIN 250 MG CAPSULE PO ONE (02:00)
[2021-01-17] MEDS ORDERED: LIDOCAINE/EPI/TETRACAINE TOPICAL GEL 3 ML. TP ONE (02:00)
--- NOTE | 2021-01-17 02:17 | RAD ---
STUDY: CT head and cervical spine without contrast INDICATION: Fall. COMPARISON: 09/12/2019 TECHNIQUE: Axial CT imaging through the head and cervical spine without the use of intravenous contra st. Sagittal and coronal reformats were obtained. One or more of the following individualized dose reduction techniques were utilized for this examinat ion: 1. Automated exposure control 2. Adjustment of the mA and/or kV according to patient size 3. Use of iterative reconstruction technique. FINDINGS: CT head: No acute intracranial hemorrhage. No localized mass effect or midline shift. No CT evidence for an ac shira cortical infarction. Redemonstration of generalized parenchymal volume loss with ex vacuo ventriculomegaly. White matter f indings typically on account of chronic microvascular ischemic change. Scattered low attenuation with in the basal ganglia was present previously. Intracranial calcific atherosclerosis. Chronic deformity of the right mandibular condyle. No depressed calvarial fracture. CT cervical spine: No acute fracture or traumatic malalignment. Multilevel spondylosis. Osteopenia. No evidence for severe central canal or neural foraminal stenosis . Carotid calcific atherosclerosis. No prevertebral hematoma. Unremarkable thyroid. No apical pneumotho rax. IMPRESSION: CT head: 1. No acute intracranial abnormality by CT. 2. Chronic/senescent observations as above. CT cervical spine: 1. No acute fracture or traumatic malalignment. 2. Multilevel degenerative changes and osteopenia. No evidence for relevant central canal stenosis. Electronically signed by: SHELLEY OLSON MD (01/17/2021 2:14 AM) [facility]
[2021-01-17] MEDS ORDERED: CEPH500C PO (02:23)
--- NOTE | 2021-01-17 02:28 | RAD ---
STUDY: CT chest without contrast INDICATION: Fall. COMPARISON: None. TECHNIQUE: Helical CT imaging of the chest performed without the use of intravenous contrast. Sagitta l and coronal reformats were obtained. One or more of the following individualized dose reduction techniques were utilized for this examinat ion: 1. Automated exposure control 2. Adjustment of the mA and/or kV according to patient size 3. Use of iterative reconstruction technique. FINDINGS: Vasculature: Extensive calcific atherosclerosis with coronary artery involvement. No evidence for acu te aortic injury on this unenhanced CT. Dense mitral annular mineralization. Lesser extent of aortic annular mineralization. Mediastinum/quique: Small hiatal hernia. Scattered granulomas. No mediastinal or hilar adenopathy by si ze criteria. No retrosternal hematoma or pericardial effusion. Lungs: No pneumothorax. Scattered atelectasis and scarring. Mild interlobular septal thickening mainl y at the lower lungs and a mild mosaic attenuation pattern. Scattered paraseptal cysts. Patent centra l airways. No pleural effusion. Neck/axilla/chest wall: Morphologically benign axillary lymph nodes. No discrete thyroid nodule. Mild nodularity of the partially imaged right breast without a well delineated mass noting that the breas ts are not well evaluated by CT. Bones: A few chronic rib deformities on the left as well as anterior deformities with surrounding penelope parvin which may be subacute. No acute appearing or displaced rib fracture. Osteopenia. No compression d eformity or posterior element malalignment. Intact sternum. Upper abdomen: No acute abnormality. IMPRESSION: 1. No sequela of trauma seen throughout the chest. A few left rib fractures exhibit incompletely for med callus typical of subacute fractures. 2. Several chronic observations detailed in the body the report. Electronically signed by: SHELLEY OLSON MD (01/17/2021 2:26 AM) [facility]
--- NOTE | 2021-01-17 02:35 | RAD ---
Study: XR HAND_LEFT 3 VIEWS Indication: Third digit injury. Comparison: None. Findings: Bandaging material surrounds the phalanges of the long finger. No acute fracture is identified or tra umatic malalignment. Mild interphalangeal joint arthrosis at a few locations. The greatest degree of arthrosis involves the thumb CMC joint which is moderate. Vascular calcifications. Osteopenia. Punctate metallic density focus projecting volar and radial to the index metacarpal neck. Impression: 1. Soft tissue injury to the long finger. No associated fracture or traumatic malalignment. 2. Punctate metallic density projecting volar/radial to the index metacarpal neck. This could be exte rnal to the patient or retained in the soft tissues near the skin surface. Correlate with direct insp ection. Electronically signed by: SHELLEY OLSON MD (01/17/2021 2:32 AM) [facility]
[2021-01-17 03:06] VITALS: BP 146/70
[2021-01-17] MEDS ORDERED: ACETAMINOPHEN 500 MG TABLET PO ONE (03:15)
== END 2021-01-17 03:07 | disposition home or self-care (01) ==
LOC: ER 00:57
DX: S61.213A Laceration without foreign body of left middle finger without damage to nail, initial encounter (principal); I25.10 Atherosclerotic heart disease of native coronary artery without angina pectoris; E11.9 Type 2 diabetes mellitus without complications; K21.9 Gastro-esophageal reflux disease without esophagitis; E78.00 Pure hypercholesterolemia, unspecified; I10 Essential (primary) hypertension; Z88.2 Allergy status to sulfonamides; Z88.5 Allergy status to narcotic agent; Z88.8 Allergy status to other drugs, medicaments and biological substances; W18.39XA Other fall on same level, initial encounter; Y93.89 Activity, other specified; Y92.89 Other specified places as the place of occurrence of the external cause; Y99.8 Other external cause status
CPT/HCPCS: 12001; 70450; 71250; 72125; 73130; 90471; 90715; 99285-25

== ENCOUNTER 2021-06-21 08:11 | Inpatient (IN) | payer MEDICARE, BC ==
[~2021-06-21] VITALS: Ht 170.2 cm; Wt 79.4 kg
[~2021-06-21 08:11] MED LIST changes: +CEPH500C PO; +INSULIN LISPRO 300 UNITS/3 ML VIAL. SQ PRN
--- NOTE | 2021-06-21 08:44 | PHYS DOC ---
Past History Past Medical History: CAD, Diabetes, GERD, High Cholesterol, Hypertension, Seizure Past Surgical History: Appendectomy, , Hysterectomy, Tonsillectomy, Other Additional Past Surgical Histo: stent Smoking: Non-smoker Alcohol Use: None Drug Use: None General Adult EDM: Chief Complaint: ABDOMINAL PAIN HPI: HPI: 85-year-old female presents with left lower quadrant pain for the last several days. The patient has been waiting at home hoping it would get better but has not. She describes it as a severe cramping sensation on the left side. She has not eaten in several days. She has had nausea and vomiting. She thought she was constipated so she took a laxative a couple days ago and "cleaned myself out". She has not had a bowel movement today. She denies fever or chills. She has not been taking her medications. She is on blood pressure medicine. Review of Systems: Review of Systems: Constitutional: Denies fever or chills Eyes: Denies change in visual acuity HENT: Denies nasal congestion or sore throat Respiratory: Denies cough or shortness of breath Cardiovascular: Denies chest pain or edema GI: Left lower quadrant abdominal pain, nausea, vomiting. : Denies dysuria Musculoskeletal: Denies back pain or joint pain Integument: Denies rash Neurologic: Denies headache, focal weakness or sensory changes Endocrine: Denies polyuria or polydipsia Lymphatic: Denies swollen glands Psychiatric: Denies depression or anxiety Current Medications: Current Meds: Current Medications Medications (Trade) Dose Ordered Sig/[facility] Start Time Stop Time Status Last Admin Dose Admin Fentanyl Citrate (Fentanyl 2ml Vial) 75 mcg 1X ONCE 06/21/21 08:45 06/21/21 08:46 Ondansetron HCl (Zofran) 4 mg 1X ONCE 06/21/21 08:45 06/21/21 08:46 Sodium Chloride 1,000 ml @ 1,000 mls/hr 1X ONCE 06/21/21 08:45 06/21/21 09:44 Allergies: Allergies: Allergies Coded Allergies Type Severity Reaction Last Updated Verified Sulfa (Sulfonamide Antibiotics) Allergy Severe Hives 06/21/21 Yes celecoxib Allergy Severe Hives 06/21/21 Yes codeine Allergy Severe Hives 06/21/21 Yes Physical Exam: PE: Constitutional: Well developed, well nourished, no acute distress, non-toxic appearance. [] HENT: Normocephalic, atraumatic, bilateral external ears normal, oropharynx moist, no oral exudates, nose normal. [] Eyes: PERRLA, EOMI, conjunctiva normal, no discharge. [] Neck: Normal range of motion, no tenderness, supple, no stridor. [] Cardiovascular: Heart rate regular rhythm, no murmur [] Lungs & Thorax: Bilateral breath sounds clear to auscultation [] Abdomen: Bowel sounds normal, soft, left lower quadrant tenderness, no masses, no pulsatile masses. [] Skin: Warm, dry, no erythema, no rash. [] Back: No tenderness, no CVA tenderness. [] Extremities: No tenderness, no cyanosis, no clubbing, ROM intact, no edema. [] Neurologic: Alert and oriented X 3, normal motor function, normal sensory function, no focal deficits noted. [] Psychologic: Affect normal, judgement normal, mood normal. [] Current Patient Data: Vital Signs: Vital Signs Date Time Temp Pulse Resp B/P (MAP) Pulse Ox O2 Delivery O2 Flow Rate FiO2 06/21/21 08:15 98.2 88 22 199/88 (125) 97 EKG: EKG: [] Radiology/Procedures: Radiology/Procedures: [] Impressions: PQRS Compliance Statement: One or more of the following individualized dose reduction techniques were utilized for this examination: 1. Automated exposure control 2. Adjustment of the mA and/or kV according to patient size 3. Use of iterative reconstruction technique CT ABDOMEN+PELVIS W Clinical Indication: Reason: LLQ pain Comparison: CT abdomen and pelvis without contrast March 08, 2015. Technique: Helical CT imaging of the abdomen and pelvis is performed after 75 cc of Omnipaque 300 IV contrast. Oral contrast not administered. Findings: Coronary artery disease. Dense mitral annular calcification. Cardiac size upper limits of normal. There is moderate scarring and/or atelectasis in the lung bases. The liver, gallbladder, pancreas, and adrenal glands are normal. There are calcified granulomas in the spleen. Spleen size normal. Severe calcification of the abdominal aorta and iliac arteries, no aneurysm. Kidneys enhance symmetrically, no hydronephrosis. Small bilateral renal cysts do not require follow-up. The stomach is mostly decompressed. There is no small bowel obstruction. Small duodenal diverticulum. There is no colon wall thickening. The appendix is not seen, no secondary signs of appendicitis. No abdominal adenopathy or free fluid. The urinary bladder is normal. Hysterectomy. No pelvic free fluid. Diffuse demineralization. There is mild left convexity lumbar scoliosis. There is degenerative spondylosis. There is probably chronic mild compression fracture at the inferior endplate of T12. IMPRESSION: No acute abdominal or pelvic abnormality. Electronically signed by: Eric Leggett MD (06/21/2021 10:49 AM) [id number] DICTATED AND SIGNED BY: ERIC LEGGETT MD DATE: 06/21/21 1039 CC: YOMAIRA PADRON DO; BALBIR BHATT MD ~MTH0 0 Heart Score: C/O Chest Pain: N/A Risk Factors: Risk Factors: DM, Current or recent (<one month) smoker, HTN, HLP, family history of CAD, obesity. Risk Scores: Score 0 - 3: 2.5% MACE over next 6 weeks - Discharge Home Score 4 - 6: 20.3% MACE over next 6 weeks - Admit for Clinical Observation Score 7 - 10: 72.7% MACE over next 6 weeks - Early Invasive Strategies Course & Med Decision Making: Course & Med Decision Making Pertinent Labs and Imaging studies reviewed. (See chart for details) The patient's labs are basically unremarkable though several are just outside of the normal range. See labs for more details. I do not believe this is contributing to her pain. The CT of the abdomen pelvis does not show any acute findings. Her pain could be related to her bowel cleanout taking a laxative. She no longer taking this. We have advised her of her results. She does not meet admission criteria at this time. She is stable for discharge. [] Dragon Disclaimer: Dragon Disclaimer: This electronic medical record was generated, in whole or in part, using a voice recognition dictation system. Departure Departure: Impression: Primary Impression: Left lower quadrant abdominal pain Disposition: HOME / SELF CARE / HOMELESS Condition: STABLE Referrals: BALBIR BHATT MD (PCP) Patient Instructions: Abdominal Pain, [id number] YOMAIRA PADRON DO Jun 21, 2021 08:44
[2021-06-21] MEDS ORDERED: ONDANSETRON PF 4 MG/2 ML VIAL. IVP ONE (08:45)
[2021-06-21] MEDS ORDERED: IV NORMAL SALINE 1,000ML 1,000 ML IV ONE (08:45)
[2021-06-21] MEDS ORDERED: IOHEXOL 300 MG/ML 75 ML VIAL. IV ONE (09:00)
[2021-06-21 09:38] LABS: BASO # 0.1 x10^3/uL (0.0-0.2); BASO % 1 % (0-3); EOS # 0.1 x10^3/uL (0.0-0.7); EOS % 1 % (0-3); HEMOGLOBIN 14.7 g/dL (12.0-15.5); LYMPH # 2.2 x10^3/uL (1.0-4.8); LYMPH % 19 % (24-48); MEAN CORPUSCULAR HEMOGLOBIN 33 pg (25-35); MEAN CORPUSCULAR HGB CONC 33 g/dL (31-37); MEAN CORPUSCULAR VOLUME 98 fL (79-100); MONO # 0.9 x10^3/uL (0.0-1.1); MONO % 7 % (0-9); NEUT # 8.5 x10^3uL (1.8-7.7); NEUT % 72 % (31-73); PLATELET COUNT 262 x10^3/uL (140-400); RED BLOOD COUNT 4.51 x10^6/uL (3.50-5.40); RED CELL DISTRIBUTION WIDTH 12.7 % (11.5-14.5); WHITE BLOOD COUNT 11.7 x10^3/uL (4.0-11.0)
[2021-06-21 09:44] LABS: CALCIUM 9.2 mg/dL (8.5-10.1); CREATININE 0.5 mg/dL (0.6-1.0); POTASSIUM 4.5 mmol/L (3.5-5.1)
[2021-06-21 09:50] LABS: ALBUMIN/GLOBULIN RATIO 0.6 (1.0-1.7); TOTAL BILIRUBIN 0.6 mg/dL (0.2-1.0)
--- NOTE | 2021-06-21 10:51 | RAD ---
PQRS Compliance Statement: One or more of the following individualized dose reduction techniques were utilized for this examinat ion: 1. Automated exposure control 2. Adjustment of the mA and/or kV according to patient size 3. Use of iterative reconstruction technique CT ABDOMEN+PELVIS W Clinical Indication: Reason: LLQ pain Comparison: CT abdomen and pelvis without contrast March 08, 2015. Technique: Helical CT imaging of the abdomen and pelvis is performed after 75 cc of Omnipaque 300 IV contrast. Oral contrast not administered. Findings: Coronary artery disease. Dense mitral annular calcification. Cardiac size upper limits of normal. The re is moderate scarring and/or atelectasis in the lung bases. The liver, gallbladder, pancreas, and adrenal glands are normal. There are calcified granulomas in th e spleen. Spleen size normal. Severe calcification of the abdominal aorta and iliac arteries, no aneu rysm. Kidneys enhance symmetrically, no hydronephrosis. Small bilateral renal cysts do not require fo llow-up. The stomach is mostly decompressed. There is no small bowel obstruction. Small duodenal diverticulum. There is no colon wall thickening. The appendix is not seen, no secondary signs of appendicitis. No abdominal adenopathy or free fluid. The urinary bladder is normal. Hysterectomy. No pelvic free fluid. Diffuse demineralization. There is mild left convexity lumbar scoliosis. There is degenerative spondy losis. There is probably chronic mild compression fracture at the inferior endplate of T12. IMPRESSION: No acute abdominal or pelvic abnormality. Electronically signed by: Eric Li MD (06/21/2021 10:49 AM) [id number]
[2021-06-21] MEDS ORDERED: HYDROcodone/APAP 7.5/325MG 1 TAB TABLET PO ONE (12:15)
[2021-06-21 12:51] LABS: BACTERIA,URINE 0 /HPF (0-FEW); BILIRUBIN,URINE NEG (NEG); CLARITY,URINE HAZY; COLOR,URINE YELLOW; GLUCOSE,URINE NEG (NEG); NITRITE,URINE NEG (NEG); SQUAMOUS EPITHELIAL CELL,UR FEW /LPF; UROBILINOGEN,URINE 0.2 mg/dL (0.2 mg/dL)
[2021-06-21] MEDS ORDERED: ONDANSETRON PF 4 MG/2 ML VIAL. IVP PRN (14:00)
[2021-06-21] MEDS ORDERED: PHENYTOIN SODIUM EXTENDED 100 MG CAPSULE PO ONE (14:30)
[2021-06-21] MEDS ORDERED: LISINOPRIL 10 MG TABLET PO ONE (14:30)
[2021-06-21] MEDS ORDERED: METOPROLOL TART IMMED RELEASE 25 MG TABLET. PO ONE (14:30)
[2021-06-21 16:21] VITALS: BP 133/54
--- NOTE | 2021-06-21 17:11 | NUR ---
The patient, LEA NANCE, 85 y/o, F admitted by SWETHA NAGY MD, was given written information regarding hospital policies, unit procedures and contact persons. Valuables were checked and LEFT WITH PATIENT AT BEDSIDE. VITALS WERE CHECKED REFER TO CHART.
[2021-06-21 19:57] VITALS: BP 121/60
[2021-06-21] MEDS ORDERED: NITROGLYCERIN SUBLINGUAL 0.4 MG BOTTLE OF 25. SL PRN (20:00)
[2021-06-21] MEDS: ATORVASTATIN CALCIUM 20 MG TABLET PO SCH (20:43)
[2021-06-21] MEDS: RANOLAZINE 500 MG TAB.ER.12H PO SCH (20:44)
[2021-06-21] MEDS: HYDROcodone/APAP 5/325MG 1 TAB TABLET PO PRN (20:44)
[2021-06-21] MEDS: INSULIN GLARGINE SYRINGE. SQ SCH (20:45)
[2021-06-21] MEDS: METOPROLOL TART IMMED RELEASE 25 MG TABLET. PO SCH (20:45)
[2021-06-21] MEDS: LISINOPRIL 20 MG TABLET PO SCH (20:45)
[2021-06-21] MEDS: busPIRone 5 MG TABLET. PO SCH (20:45)
[2021-06-21] MEDS ORDERED: PHENYTOIN SODIUM EXTENDED 100 MG CAPSULE PO SCH (21:00)
[2021-06-21 23:34] VITALS: BP 124/65
[2021-06-22] MEDS: HYDROcodone/APAP 5/325MG 1 TAB TABLET PO PRN ×3 (05:19→21:02)
[2021-06-22 06:08] VITALS: BP 161/72
[2021-06-22] MEDS: ASPIRIN CHEWABLE 81 MG TABLET. PO SCH (07:54)
[2021-06-22] MEDS: VITAMIN B COMPLEX CAPSULE. PO SCH (07:54)
[2021-06-22] MEDS: RANOLAZINE 500 MG TAB.ER.12H PO SCH ×2 (07:54→20:59)
[2021-06-22] MEDS: LISINOPRIL 20 MG TABLET PO SCH ×2 (07:55→21:00)
[2021-06-22] MEDS: METOPROLOL TART IMMED RELEASE 25 MG TABLET. PO SCH ×2 (07:55→21:00)
[2021-06-22] MEDS: CHOLECALCIFEROL (VITAMIN D3) 1,000 UNIT TABLET PO SCH (07:56)
[2021-06-22] MEDS ORDERED: CHOLECALCIFEROL (VITAMIN D3) 1,000 UNIT TABLET ONE (08:00)
[2021-06-22 11:45] VITALS: BP 139/54
--- NOTE | 2021-06-22 14:42 | HP ---
HISTORY OF PRESENT ILLNESS: The patient is an 85-year-old female patient who apparently was brought to the Emergency Room with a complaint of left lower quadrant pain that has been going on for almost 6 days. The patient apparently has been staying at home, waiting for it to get better, but it has not. She described it as severe cramping sensation on the left side. According to her, she has vomited for almost 12 hours last Tuesday, about 6 days ago, but since then, she has not, and she thought she was constipated and took laxatives that cleaned herself out. She denied any chills, rigors, or fever. The pain is mostly in the left flank area, radiating to the left groin area, aggravated by movement and relieved by rest and warmth. She was extensively investigated in the Emergency Room and has had lab work as well as imaging studies. Her lab work showed that she has mild leukocytosis. Her chemistry was mostly unremarkable. Urinalysis also was unremarkable and her CT scan of the abdomen and pelvis showed no acute abdominal or pelvic abnormality. She was admitted for further investigation and pain management. PAST MEDICAL HISTORY: Significant for hypertension, hyperlipidemia. She also has history of seizures; coronary artery disease, status post PCI and stent deployment as well as type 2 diabetes mellitus. PAST SURGICAL HISTORY: Significant for coronary angioplasty with stent deployment, , total abdominal hysterectomy, appendectomy, tonsillectomy, and bilateral cataract extraction. She apparently has had also spinal epidural steroid injections for degenerative disk disease about 8 years ago. ALLERGIES: SHE IS ALLERGIC TO SULFA DRUGS, CELEBREX, AND CODEINE. MEDICATIONS: She is currently on following medications: She is on cephalexin 500 mg 3 times a day, Ranexa 500 mg twice a day, atorvastatin calcium 40 mg at bedtime, nitroglycerin 0.3 mg sublingually every 5 minutes, metoprolol tartrate 25 mg twice a day, lisinopril 20 mg twice a day, aspirin 81 mg once a day, hydrocodone/APAP 5/325 one tablet every 6 hours, phenytoin sodium extended release 100 mg at bedtime. She is also on buspirone 5 mg at bedtime. She is on Lantus insulin 40 units at bedtime and Humalog insulin 7 units before breakfast and lunch and Humalog insulin 10 units at bedtime, vitamin B complex one tablet once a day, and cholecalciferol vitamin D3 at 1000 units once a day. FAMILY HISTORY: She has 4 brothers, 3 at younger age and one at age of 68 because of trauma. Two older sisters, 1 of stroke and the other one of lung cancer. SOCIAL HISTORY: She has 2 sons and 2 daughters. She quit smoking about 45 years ago. She does not drink alcohol or use any illicit drugs. [place]. REVIEW OF SYSTEMS: As per history of present illness. PHYSICAL EXAMINATION: GENERAL: On examining her, she looked well and was clearly in no apparent respiratory distress. There was no pallor, jaundice, cyanosis, or thyromegaly. No jugular venous distention. No limb edema. VITAL SIGNS: Her heart rate was 74, blood pressure was 161/72, temperature 97.9, respiratory rate was 18, and oxygen saturation was 96% on room air. HEAD, EYES, EARS, NOSE, AND THROAT: Showed normocephalic, atraumatic. NECK: Supple. HEART: Normal first and second heart sounds. No gallop, rub, or murmur. CHEST: Clear to auscultation. No crepitation or rhonchi. ABDOMEN: Distended, soft, nontender. NEUROLOGIC: She is awake, alert, responding appropriately. All cranial nerves intact. She moves all extremities without difficulty, although she obviously has more pain on the left side on moving her left lower extremity. She has marked tenderness on palpation over the thoracic and lumbar spine. She also has marked tenderness on left trochanteric bursa. LABORATORY DATA: On admission showed a white cell count of 11,700, hemoglobin 14.7, hematocrit 44, MCV 98, and platelet count 262,000. Her chemistry showed a serum sodium 133, potassium 4.5, chloride 100, bicarbonate 25, anion gap of 8, BUN 11, creatinine 0.5. Estimated GFR was 117 mL per minute. Her glucose 155. Calcium was 9.2. Total bilirubin, AST, ALT, alkaline phosphatase slightly elevated. Total protein was 8. Albumin was 3. Her urinalysis showed the urine was yellow and hazy with a pH of 7, specific gravity of 1.015. The urine was negative for protein and glucose. There was trace of ketones, trace of blood, negative for nitrite. There was moderate amount of leukocyte esterase, 1-2 rbc's, 11-20 wbc's, and very few bacteria. The patient has dense mitral annular calcification. Cardiac size upper limit of normal. There is moderate scarring and/or atelectasis in the lung bases. The liver, gallbladder, pancreas, adrenal glands are normal. There are concrete calcified granulomas in the spleen. The spleen size is normal. Severe calcification of the abdominal and iliac arteries; however, there are no aneurysms. Kidneys enhance symmetrically. No hydronephrosis. Small bilateral renal cysts do not require followup. The stomach is mostly decompressed. There is no small bowel obstruction, small duodenal diverticulum. There is no colon wall thickening. The appendix is not seen, but no secondary signs of appendicitis. No abdominal adenopathy or free fluid. The urinary bladder is normal, hysterectomy, and no pelvic free fluid. Diffuse demineralization. There is mild left convexity lumbar scoliosis. There is degenerative spondylosis. There is probably chronic mild compression fracture of the inferior endplate of T12. ASSESSMENT AND PLAN: The patient was admitted obviously for further evaluation and pain management. I will reconcile all her medications and will obviously arrange for dedicated thoracolumbar spine CT scan for further evaluation and treatment. RASTA DR: Miguelina TID: [id number]
[2021-06-22 15:42] VITALS: BP 164/54
--- NOTE | 2021-06-22 16:57 | RAD ---
STUDY: 1. CT thoracic spine without contrast 2. CT lumbar spine without contrast INDICATION: Severe back pain radiating to the left side. COMPARISON: CT chest 01/17/2021; CT abdomen/pelvis 06/21/2021 TECHNIQUE: Axial CT imaging of the thoracic and lumbar spine performed without the use of contrast. C oronal and sagittal reformats were obtained. One or more of the following individualized dose reduction techniques were utilized for this examinat ion: 1. Automated exposure control 2. Adjustment of the mA and/or kV according to patient size 3. Use of iterative reconstruction technique. FINDINGS: Thoracic spine: Osteopenia limits assessment for subtle fractures. No change in vertebral body height from T1 through T11 from the 01/17/2021 comparison. Acute or subacute inferior endplate compression fracture at T12 h eight loss of up to approximately 30 percent. Trace dorsal cortical buckling at the far inferior mey in without significant retropulsion. Millimetric retrolisthesis of T12 on L1. The fracture appears to extend into the base of the left pedicle, image 87 series 3. No osseous narrowing of the central can al at this level or severe osseous encroachment on the T12-L1 neural foramina. Scattered degenerative changes mainly at the partially imaged lower cervical spine. Extensive calcific atherosclerosis with coronary artery involvement. Dense mitral annular mineralizat ion. Trace pleural fluid on the left. Interlobular septal prominence mainly at the lower lungs. There may be a component of fibrosis. Lumbar spine: Taking into consideration osteopenia, no acute lumbar spine fracture. Multilevel, multifactorial degenerative changes on a background of degenerative levocurvature with th e apex at L2-L3. Osseous neural foraminal stenosis greatest on the left at L4-L5 and L5-S1 and to a l jenny extent on the right at L2-L3 and L3-L4. Limited assessment for the degree of central canal narr owing but greatest at L4-L5. No evidence for a fracture the partially imaged sacrum or iliac bones. Extensive calcific atherosclerosis. IMPRESSION: Thoracic spine: 1. Acute or subacute inferior endplate compression fracture at T12 with minimal dorsal cortical stauffer ling but no significant retropulsion. Height loss of up to 30%. The fracture appears to extend to the base of the left pedicle but without definitive extension further into the posterior elements. Takin g into consideration osteopenia, no additional fracture seen throughout the thoracic spine. 2. Possible component of interstitial edema though the prominence of the interlobular septa could be in part chronic from fibrosis. Tiny amount of pleural fluid on the left. Lumbar spine: 1. No acute fracture identified throughout the lumbar spine. 2. Multifactorial degenerative changes on a background of degenerative levocurvature. Central canal n arrowing favored greatest at L4-L5 and suspected to be moderate. The most notable neural foraminal na rrowing is on the left at L4-L5 and L5-S1. Electronically signed by: SHELLEY OLSON MD (06/22/2021 4:54 PM) [facility]
--- NOTE | 2021-06-22 17:25 | NUR ---
PT ASKED FOR PAIN MEDICATION TODAY. PT RESTED MOST OF THE DAY. PT WAS ESPECIALLY IN PAIN AFTER GETTING OUT OF BED AND GOING TO RADIOLOGY VIA WHEELCHAIR. PT BLOOD SUGAR WAS 140 BEFORE SUPPER.
[2021-06-22] MEDS: INSULIN LISPRO 300 UNITS/3 ML VIAL. SQ SCH (17:37)
[2021-06-22 20:04] VITALS: BP 120/62
[2021-06-22] MEDS: ONDANSETRON PF 4 MG/2 ML VIAL. IVP PRN (20:04)
[2021-06-22] MEDS: busPIRone 5 MG TABLET. PO SCH (20:59)
[2021-06-22] MEDS: ATORVASTATIN CALCIUM 20 MG TABLET PO SCH (20:59)
[2021-06-22] MEDS ORDERED: PHENYTOIN SODIUM EXTENDED 100 MG CAPSULE PO SCH (21:00)
[2021-06-22] MEDS: INSULIN GLARGINE SYRINGE. SQ SCH (21:00)
--- NOTE | 2021-06-23 03:20 | PN ---
SUBJECTIVE: The patient is resting, slightly propped up in bed, in no apparent respiratory distress. She continued to complain of left-sided flank pain radiating to the left groin area, aggravated by movement and alleviated by rest and warmth. OBJECTIVE: GENERAL: On examining her, she looked well and was clearly in no apparent respiratory distress. No pallor, jaundice, cyanosis or thyromegaly. No jugular venous distention. No limb edema. VITAL SIGNS: Her heart rate was 62, blood pressure is 139/54, temperature was 98.5, respiratory rate 20, and oxygen saturation was 99% on room air. The rest of clinical examination is stable. ASSESSMENT: Looking at CT scan of the abdomen and pelvis done yesterday it showed that she has what seemed to be chronic compression fracture of T12. Clinically, she has marked tenderness in both thoracic and lumbar spine and therefore my plan is to arrange for her to have a CT scan of the thoracic and lumbar spine. I also added sed rate and C-reactive protein to her labs tomorrow and decide the further management accordingly. Meanwhile, we will continue with all her medications including her hydrocodone. We will continue to monitor her blood sugar and adjust insulin as needed. OSEI/LUZ MARIA DR: Miguelina TID: [id number]
[2021-06-23 05:55] VITALS: BP 169/63
[2021-06-23 06:51] LABS: HEMATOCRIT 39.7 % (36.0-47.0); HEMOGLOBIN 13.8 g/dL (12.0-15.5); RED BLOOD COUNT 4.16 x10^6/uL (3.50-5.40); RED CELL DISTRIBUTION WIDTH 12.4 % (11.5-14.5); WHITE BLOOD COUNT 9.4 x10^3/uL (4.0-11.0)
[2021-06-23 07:17] LABS: ALBUMIN 2.5 g/dL (3.4-5.0); ALBUMIN/GLOBULIN RATIO 0.6 (1.0-1.7); C REACTIVE PROTEIN 17.5 mg/L (0-3.3); CALCIUM 8.3 mg/dL (8.5-10.1); CREATININE 0.6 mg/dL (0.6-1.0); GFR 94.8; POTASSIUM 3.6 mmol/L (3.5-5.1); TOTAL BILIRUBIN 0.4 mg/dL (0.2-1.0); TOTAL PROTEIN 6.4 g/dL (6.4-8.2)
[2021-06-23] MEDS ORDERED: CHOLECALCIFEROL (VITAMIN D3) 1,000 UNIT TABLET ONE (08:00)
[2021-06-23] MEDS: CHOLECALCIFEROL (VITAMIN D3) 1,000 UNIT TABLET PO SCH (08:03)
[2021-06-23] MEDS: METOPROLOL TART IMMED RELEASE 25 MG TABLET. PO SCH (08:03)
[2021-06-23] MEDS: VITAMIN B COMPLEX CAPSULE. PO SCH (08:03)
[2021-06-23] MEDS: ASPIRIN CHEWABLE 81 MG TABLET. PO SCH (08:04)
[2021-06-23] MEDS: LISINOPRIL 20 MG TABLET PO SCH (08:04)
[2021-06-23] MEDS: RANOLAZINE 500 MG TAB.ER.12H PO SCH (08:04)
[2021-06-23] MEDS: ONDANSETRON PF 4 MG/2 ML VIAL. IVP PRN (08:04)
[2021-06-23] MEDS: HYDROcodone/APAP 5/325MG 1 TAB TABLET PO PRN ×3 (08:06→17:29)
[2021-06-23 10:34] VITALS: BP 160/64
--- NOTE | 2021-06-23 15:09 | NUR ---
PT PAIN MED FREQUENCY CHANGED TO Q4 PRN. PT WENT FOR A BONE SCAN. PENDING RESULTS. DEPENDING ON RESULTS, PT MAY BE TRANSFERRED TO [facility] FOR PROCEDURE. PT WAS NAUSEOUS THIS MORNING AND HAD ZOFRAN WHICH SEEMED TO HELP.
[2021-06-23 15:50] VITALS: BP 178/68
--- NOTE | 2021-06-23 16:14 | RAD ---
SITE ID: [id number] EXAMINATION: NM BONE SCAN WHOLE BODY - Whole body bone scan. Technique: After the intravenous administration of 25 mCi of Technetium 99m MDP, whole body delayed p hase bone scan images were obtained with lateral views of the head and neck and the chest regions. Indication: 85 years Female Reason: severe back pain with T12 compression fracture / Compression fracture at T12 is seen in thoracic spine CT from June 22, 2021 that is new compared to thoracic spine CT from January 17, 2021. The study is performed to evaluate for possible acute appe arance Findings: There is normal distribution of the radiotracer in the osseous structures with superimposed areas of probably degenerative related increased activity in joints most prominent in the spine, shoulders and knees. There are also linear from prominent foci of increased radiotracer uptake seen in the anterio r from left ribs appears to involve the third, fourth and fifth ribs which could be trauma related. The level of concern based on CT scan at the T12 demonstrate no high intensity uptake suggestive of a late subacute occurrence of the fracture. There is symmetric uptake in the kidneys. No intense foci of increased uptake is seen in a pattern to suggest underlying neoplasm or metastatic disease. IMPRESSION: The compression fracture at T12 is probably at late subacute stage based on lack of inten sity increased radiotracer activity on this exam. Electronically signed by: Ray Bell MD (06/23/2021 4:11 PM) [id number]
[2021-06-23] MEDS: INSULIN LISPRO 300 UNITS/3 ML VIAL. SQ SCH (17:01)
--- NOTE | 2021-06-23 17:20 | NUR ---
DR. NAGY DECIDED TO HAVE PT TRANSFERRED TO [facility]. 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 PAPERWORK COMPLETE. PT AWARE.
--- NOTE | 2021-06-23 17:56 | NUR ---
PT GOING TO ROOM 442 AT [facility]. REPORT CALLED TO SHANE. PT GIVEN PAIN MEDCATION.
--- NOTE | 2021-06-23 18:16 | NUR ---
PT PICKED UP BY EMS AND TAKEN TO [facility] ROOM 442 VIA GURNEY. PT HAS BELONGINGS. EMS HAS TRANSFER PAPERWORK. PT STABLE. PT STILL HAS IV ACCESS.
[2021-06-23] MEDS ORDERED: PHENYTOIN SODIUM EXTENDED 100 MG CAPSULE PO SCH (21:00)
--- NOTE | 2021-06-24 08:40 | PN ---
DATE: 06/23/2021 SUBJECTIVE: The patient is still complaining of back pain. I did a CT scan of the thoracic and lumbar spine and it showed that she has acute or subacute inferior endplate compression fracture of T12 with minimal dorsal cortical buckling, but no significant retropulsion, height loss of up to 30%. The fracture appears to extend to the base of the left pedicle, but without definitive extension further into the posterior element, taking into consideration osteopenia. No additional fractures were seen throughout the thoracic spine. There was no acute fracture identified throughout the lumbar spine. Does have multifactorial degenerative changes on a background of degenerative levocurvature, central canal narrowing favored greater than later at L5-S1 ____ and suspect to be moderate, most notable foraminal narrowing at left at L4-L5 and L5-S1. PHYSICAL EXAMINATION: GENERAL: When I examined her, the patient looked pale. No jaundice, cyanosis or thyromegaly. No jugular venous distention. No limb edema. VITAL SIGNS: Her heart rate was 63, blood pressure is 160/64, temperature was 97.8, respiratory rate was 18 and oxygen saturation was 96% on room air. HEAD, EYES, EARS, NOSE, AND THROAT: Normocephalic, atraumatic. NECK: Supple. HEART: Showed normal first and second heart sounds. No gallop, rub or murmur. CHEST: Clear to auscultation, no crepitation or rhonchi. ABDOMEN: Distended, soft, nontender. NEUROLOGIC: She was awake, alert, responding appropriately. All cranial nerves intact. She moves upper extremities without difficulty. Still having difficulty moving her left lower extremity. Her intake over the last 24 hours and output incompletely recorded. LABORATORY DATA: This morning showed a white cell count 9400, hemoglobin 14, hematocrit 40, MCV 95 and a platelet count 252,000 with her sedimentation rate was only 18 mm per hour. Serum sodium 139, potassium 3.6, chloride 103, bicarbonate 30, anion gap of 6, BUN 7, creatinine 0.6. Estimated GFR was 94 mL per minute. Her glucose 119, calcium was 8.3. Total bilirubin, AST, ALT, alkaline phosphatase slightly elevated. C-reactive protein was 17.5 mg per liter, total protein 6.4, albumin 2.5. ASSESSMENT AND PLAN: Left flank pain likely due to compression fracture of T11 with possible L4-L5 left sided lumbar radiculopathy. I did order a bone scan that was requested by Dr. Simental and if it shows an acute compression fracture, the patient will be transferred to [facility] for kyphoplasty. JAN/ALYSE/MARILYNN DR: JAN/juliana TID: [id number]
== END 2021-06-23 18:19 | disposition short-term general hospital (02) | DRG 543 ==
LOC: ER 08:11 → 1 SOUTH 13:53
PROVIDERS: ADMIT Internal Medicine; ATTEND Internal Medicine
DX: M80.88XA Other osteoporosis with current pathological fracture, vertebra(e), initial encounter for fracture (principal); J98.11 Atelectasis; I10 Essential (primary) hypertension; E11.9 Type 2 diabetes mellitus without complications; M54.16 Radiculopathy, lumbar region; D72.829 Elevated white blood cell count, unspecified; E78.00 Pure hypercholesterolemia, unspecified; E78.5 Hyperlipidemia, unspecified; I25.10 Atherosclerotic heart disease of native coronary artery without angina pectoris; Z80.1 Family history of malignant neoplasm of trachea, bronchus and lung; Z82.3 Family history of stroke; Z87.891 Personal history of nicotine dependence; Z90.49 Acquired absence of other specified parts of digestive tract; Z90.710 Acquired absence of both cervix and uterus; Z91.14 Patient's other noncompliance with medication regimen; Z98.41 Cataract extraction status, right eye; Z95.5 Presence of coronary angioplasty implant and graft; Z98.42 Cataract extraction status, left eye; K21.9 Gastro-esophageal reflux disease without esophagitis; X58.XXXA Exposure to other specified factors, initial encounter; Y93.89 Activity, other specified; Y92.89 Other specified places as the place of occurrence of the external cause; Y99.8 Other external cause status; Z20.822 Contact with and (suspected) exposure to COVID-19; Z88.2 Allergy status to sulfonamides; Z88.8 Allergy status to other drugs, medicaments and biological substances
CPT/HCPCS: 36415; 72128; 72131; 74177; 78306; 80053; 81001; 82947; 85025; 85027; 85651; 86140; 87086; 87426; 96374; A9503; J1815; J2405; J3010; Q9967; U0003; 99285-25; J7030